=== PATIENT | female | born 1945 | race Caucasian/White ===

== ENCOUNTER 2023-02-17 14:55 | Outpatient (CLI) | payer MEDICARE, SELFPAY ==
--- NOTE | ~2023-02-17 | US_ITS ---
EXAMINATION:US venous doppler LE LT INDICATION:Left leg edema TECHNIQUE: Multiple grayscale, color flow and Doppler images of the left lower extremity deep venous systems were obtained and reviewed. COMPARISON:No prior studies for comparison. FINDINGS: The common femoral, superficial femoral and popliteal veins demonstrate normal respiratory variation, augmentation and compressibility. Color flow is also seen within the posterior tibial, pe roneal, greater saphenous and profunda veins. IMPRESSION: 1: No lower extremity deep venous thrombosis. Reviewed, dictated and finalized at location A. ERT INSTALLER
== END 2023-02-17 14:56 | disposition home or self-care (01) ==
PROVIDERS: Visit Provider Orthopaedic Surgery
DX: R60.0 Localized edema (principal); Z96.652 Presence of left artificial knee joint
CPT/HCPCS: 93971

== ENCOUNTER 2024-07-20 11:53 | Outpatient (CLI) | payer MEDICARE, SELFPAY ==
--- OUTSIDE RECORDS SUMMARY | 2024-07-20 12:03 | XMS_ITS | Clinical Summary ---
Author Organization [facility] Address [address] [place] [id number] Care Team Providers Care Mold Breaker Name Role Phone Kinjal Blackwood MD Primary Care Provider [phone] Allergies Active Allergy Reactions Criticality Noted Date Comments Diphenhydramine Other (see comment) 06/10/2023 Patient stated that they are wired and it makes them itch. Celecoxib Joint Pain 05/06/2023 Neomycin-Bacitracin Zn-Polymyx Itching,Redness Low 11/18/2012 Poison Bushra Extract Hives 06/10/2023 Medications multi vitamin/minerals (THERA-M ENHANCED) tablet Take 1 tablet by mouth daily. Active acetaminophen (TYLENOL) 500 MG tablet Take 1 tablet (500 mg total) by mouth every 6 (six) hours as needed for Pain. Active amLODIPine (NORVASC) 10 MG tabletIndication s:Primary hypertension Take 1 tablet (10 mg total) by mouth daily. 90 tablet 3 07/16/19 25 Active lisinopril (PRINIVIL) 20 MG tabletIndication s:Primary hypertension Take 1 tablet (20 mg total) by mouth daily. 90 tablet 3 07/16/19 25 Active vitamin D3, cholecalciferol, 1.25 MG (03369 UT) capsule Vitamin D3 025 Discontin ued(Thera py completed ) lisinopril (PRINIVIL) 20 MG tabletIndication s:Primary hypertension take 1 tablet by mouth every day 90 tablet 3 10/03/19 24 025 Discontin ued(Reord er) amLODIPine (NORVASC) 10 MG tabletIndication s:Primary hypertension take 1 tablet by mouth every day 90 tablet 3 10/10/19 24 025 Discontin ued(Reord er) amoxicillin (AMOXIL) 500 MG capsule Prior to dental appointments 08/18/19 24 025 Discontin ued(Thera py completed ) Active Problems Problem Noted Date Diagnosed Date Low back pain 04/17/2023 Osteoarthritis of right knee 04/17/2023 S/P total knee arthroplasty, left 01/27/2023 Osteoarthritis of left knee 01/12/2023 Positive colorectal cancer screening using Colog uard test 01/08/2023 Overview (01/08/2023): Added automatically from request for surgery [id number] Arthralgia of left knee 12/06/2022 Allergic rhinitis, unspecifi ed seasonality, unspecified trigger 10/25/2022 Osteoarthritis of both knees 06/28/2022 Pain in joint of right shoulder 12/21/2021 Osteoarthrosis 06/29/2021 Primary osteoarthritis of left hip 2020 Assessment & Plan (2020 10:21 AM CDT): At this time the patient would like to avoid surgical intervention due to her husbands health. We discussed the risks and benefits of a referral for a steroid injection, she declines as this would be short term relief potentially only a few weeks. She will continue Meloxicam. An RX for tramadol was sent to her pharmacy. She will call us back when she is ready to proceed with surgical intervention. Abnormal mammogram 06/26/2017 Hip pain, left 05/30/2017 Vitamin D deficiency 05/13/2017 Wears hearing aid in both ears 05/13/2017 Hyperlipidemia 11/18/2012 Hypertension 11/18/2012 Encounters Date Type Department Care Team Description 07/15/2024 10:20 AM CDT Office Visit [facility] Family & Internal Medicine [facility] [address] [place] [id number] Kinjal Blackwood MD Surgical Clearance 07/15/2024 Travel 06/16/2024 Scan [facility] INFO SRVCS Scanned, [facility] 05/31/2024 9:20 AM CDT Office Visit [facility] Family & Internal Medicine [facility] [address] [place] [address] Nevaeh Ny, NAA Back Pain (Was picking up sticks in yard and noticed spasms to back-just not getting better) 05/31/2024 Travel from Last 3 Months Immunizations Immunization Administration Dates Next Due Fluzone High Dose - >Age 65 (Prefilled Syringe) 11/25/2022,12/27/2021,11/14/2019,2018,12/12/2016 Influenza Adult (Generic) 12/27/2021,,11/17/2018,2017,12/13/2016 MODERNA COVID-19 BIVALENT (1 2+), MRNA, LNP-S, PF 12/31/2021 MODERNA COVID-19 (12+) MRNA, LNP-S, PF, 100 MCG/ 0.5 ML DOSE 01/09/2021,05/12/2020,04/14/2020 Pneumococcal (Pneumovax 23) 05/17/2010 Pneumococcal (Prevnar 13) 05/08/2015 Shingrix 04/03/2021,01/22/2021 Td, Adsorbed, Preservative F ree, Adult Use, Lf Unspecified 08/06/2010 Family History Medical History Relation Comments AAA Father Alzheimers Father Early Hearing Loss Father Breast Cancer Neg Hx Relation Status Comments Father Mother Social History Tobacco Use Types Packs/Day Years Used Date Smoking Tobacco: Never Passive Smoke Exposure: Never Smokeless Tobacco: Never Tobacco Cessation:Counseling Given: No Alcohol Use Standard Drinks/Week Comments Not Currently 0 (1 standard drink = 0.6 oz pur e alcohol) Social use AUDIT-C Answer Date Recorded Frequency of Alcohol Consumption Monthly or less 06/01/2018 Average Number of Drinks 1 or 2 019 Frequency of Binge Drinking Never 03/2018 PHQ-2 Answer Date Recorded Patient Health Questionnaire-2 Score 0 05/31/2024 Comments No Sex and Gender Information Value Date Recorded Sex Assigned at Female 11/04/2023 7:56 AM CDT Legal Sex Female 5:59 PM CDT Gender Identity Female 11/04/2023 7:56 AM CDT Sexual Orientation Not on file Last Filed Vital Signs Vital Sign Reading Time Taken Comments Blood Pressure 133/84 07/15/2024 10:43 AM CDT Pulse 89 07/15/2024 10:14 AM CDT Temperature 36.2 C (97.1 F) 07/15/2024 10:14 AM CDT Respiratory Rate 16 07/15/2024 10:14 AM CDT Oxygen Saturation 97% 07/15/2024 10:14 AM CDT Inhaled Oxygen Concentration - - Weight 68.5 kg (151 lb) 07/15/2024 10:14 AM CDT Height 154.9 cm (5' 1 ) 07/15/2024 10:14 AM CDT Body Mass Index 28.53 07/15/2024 10:14 AM CDT Plan of Treatment Upcoming Encounters Date Type Department Care Team (Late st Contact Info) Description 01/17/2025 11:20 AM TOBACCO BALER Office Visit [facility] Family & Internal Medicine - [address] [phone] Kinj[place] [id number] [place] [address]. [address] [place] [address] Health Maintenance Due Date Last Done Comments Annual Medicare Wellness Visit 2010 DTaP, Tdap and Td Vaccines (1 - Tdap) 08/07/2010 08/06/2010 Pneumococcal Vaccine: 50+ Years (3 of 3 - PCV20 or PCV21) 05/07/2020 05/08/2015, 05/17/2010 RSV Immunization or 60+ Years (1 - 1-dose 75+ series) 2020 COVID-19 Vaccine ( season) 2023 12/25/2022, 12/31/2021, 01/09/2021, Additional history exists Dexa Scan (General) Completed 05/18/2015 Colorectal Cancer Screening Colonoscopy (10 Years) Discontinued 05/30/2016 Hepatitis C Completed 05/17/2020 Zoster Vaccines Completed 04/03/2021, 01/22/2021 PHQ-2 (Physician [place]) Completed 05/31/2024 Meningococcal B Vaccine Aged Out No l onger eligible based on patient's age to complete this topic Meningococcal Vaccine Aged Out No jadon adelita eligible based on patient's age to complete this topic RSV Immunizations Under 20 Months Aged Out No longer eligible based on patient's age to complete this topic Procedures Procedure Name Priority Date/Time Associated Diagnosis Comments HEPATITIS C ANTIBODY W/RFX TO HCV RNA Routine 05/17/2020 7:56 AM CDT Need for hepatitis C screening test COLONOSCOPY Routine 05/30/2016 12:00 AM CDT BONE DENSITY/DEXA Routine 05/18/2015 10: 54 AM CDT from Last 3 Months or Most Recently Relevant to Health Maintenance Results * HEPATITIS C ANTIBODY W/RFX TO HCV RNA ([facility] ONLY) (05/17/2020 7:56 AM CDT) HEPATITIS C AB NON-REACTI VE NON-REACT DINA [facility] SIGNAL TO CUTOFF 0.01 <[address] [facility] Comment: HCV antibody was non-reactive. There is no laboratory evidence of HCV infection. In most cases, no further action is required. However, if recent HCV exposure is suspected, a test for HCV RNA (test code 93035) is suggested. For additional information please refer to http://education.Novelo/faq/EPW39o6 (This link is being provided for informational/ educational purposes only.) 05/17/2020 7:56 AM CDT 05/17/2020 11:54 PM CDT us Christina Sutton MD LABORATORY Final Result [facility] [address] [place] [address] * Colonoscopy (05/30/2016 12:00 AM CDT) 05/30/2016 05/30/2016 Narrative [facility] TO EPIC CONVERSION - 05/30/2016 12:00 AM CDT Documented hx of procedure Procedure Note Jonathan Hood MD - 01/04/2018 Documented hx of procedure us Generic Conversion Md HOOD GI PROCEDURE ORDERABLES Final Result [facility] TO EPIC CONVERSION * BONE DENSITY/DEXA (05/18/2015 10:54 AM CDT) Anatomical Region Laterality Modality Bone Bone Density 05/18/2015 10:5 4 AM CDT 05/18/2015 10:54 AM CDT Narrative 05/18/2015 11:03 AM CDT CLAU REYNOSO ADMIT/SERVICE DATE: 05/18/15 ACCT: [id number] DISCHARGE DATE: : 1945 SEX: F ORD SITE: [facility] PT TYPE: REG CLI ORDERING MD: CHRISTINA SUTTON MD STUDY DATE REPORT # ORDER # EXT ORDER ID 05/18/15 [id number] PROC CODE: DEXASCAN PROCEDURE DESCRIPTION: XR DEXA SCAN IMAGING STUDIES: XR DEXA SCAN DATE: 05/18/2015 10:28 AM INDICATION: . OSTEOPOROSIS. COMPARISON: NO COMPARISONS.. IMPRESSION: LUMBAR SPINE L2-L4: BMD: 1.389. T-SCORE: 2.8. WHO CLASSIFICATION: NORMAL YOUNG ADULT RANGE. FRACTURE RISK: VERY LOW FRACTURE RISK. FEMORAL NECK: BMD: 0.671. T-SCORE: -1.6. WHO CLASSIFICATION: OSTEOPENIA. FRACTURE RISK: MODERATE FRACTURE RISK. ELECTRONICALLY SIGNED BY SABINA FULLER MD Procedure Note Jonathan Hood MD - 12/24/2017 ANGELESCLAU ADMIT/SERVICE DATE:05/18/15 ACCT: [id number] DISCHARGE DATE: : 1945 SEX: F ORD SITE: [facility] PT TYPE: REG CLI ORDERING MD:CHRISTINA SUTTON MD STUDY DATE REPORT # ORDER # EXT ORDER ID 05/18/15 [id number] PROC CODE: DEXASCAN PROCEDURE DESCRIPTION: XR DEXA SCAN IMAGING STUDIES: XR DEXA SCANDATE: 05/18/2015 10:28 AM INDICATION: . OSTEOPOROSIS. COMPARISON: NO COMPARISONS.. IMPRESSION: LUMBAR SPINE L2-L4: BMD: 1.389. T-SCORE: 2.8. WHO CLASSIFICATION: NORMAL YOUNG ADULT RANGE. FRACTURE RISK: VERY LOW FRACTURE RISK. FEMORAL NECK: BMD: 0.671. T-SCORE: -1.6. WHO CLASSIFICATION: OSTEOPENIA. FRACTURE RISK: MODERATE FRACTURE RISK. ELECTRONICALLY SIGNED BY SABINA FULLER MD Christina Sutton MD DEXA Final Result from Last 3 Months or Most Recently Relevant to Health Maintenance Insurance [employer] Care Teams Mold Breaker Relationship Specialty [place] [id number] [place] [address] PCP - General FAMILY PRACTICE 06/18/22
--- OUTSIDE RECORDS SUMMARY | 2024-07-20 12:03 | XMS_ITS | CONTINUITY OF CARE DOCUMENT ---
Author Name dinorah copeland Address Unknown Organization [facility] Address [address] [place] [address] [address] [place] [address] Phone [phone] Care Team Providers Care Senior Sous Chef Name Role Phone Skip Joseph MD Unavailable [phone] Skip Joseph MD Unavailable [phone] INSURANCE PROVIDERS Payer name Policy type / Coverage type [place] red [employer] party ID [employer] MEDICARE VALUE ADVANTRA PPO [employer] [id number]
--- OUTSIDE RECORDS SUMMARY | 2024-07-20 12:03 | XMS_ITS | Data Portability ---
Author Organization [place] [facility], Main Office Address [address] [place] [address] Care Team Providers Care Wraparound Facilitator Name Role Phone AQUILINO WILLARD Primary Care Provider [phone] AQUILINO WILLARD Referring Provider [phone] Assessment Encounter Date Assessment Date Assessment LastModified by Organization Details LastModified Time 12/06/2022 12/06/2022 impression: Patient has severe medial compartment osteoarthritis In both knees. The left knee is a little bit more symptomatic. She does not feel she is getting adequate relief from the cortisone injections would like to proceed with knee replacement surgery doing the left 1 . She would like to have a cortisone shot in the right knee at time of surgery. I have discussed risks of surgery with her in detail. Her teeth are fine. Risk of infection was discussed. She is given the Ortho info handout on total knee arthroplasty for her review. I explained that will be numbness lateral to the incision the patient has had difficulty kneeling after knee replacement surgery for a long time some patients have anterior knee sensitivity . I discussed how her recovery may be a little bit different with knee replacement surgery compared hip replacement. Therapy will be more intensive and the need for her to comply with the range of motion exercises be much more important. I explained that most patients are able to do their activities of North daily living well by 3 months after surgery but that full recovery after knee replacement takes between 12 and 18 months. Risk of complications such as infection blood clots pulmonary embolism stiffness instability ligament injury fracture component loosening need for revision surgery bleeding need for transfusion nerve injury and medical complications such as heart attack stroke pulmonary embolism and were reviewed. She would like to proceed as discussed. 40 minutes were spent in total care this patient with more than half the time spent in [id number] care. Not available 12/14/2022 16:26:22 02/03/2023 02/03/2023 HPI: Patient returns. She is now 13 days out from left total knee arthroplasty. She is doing outpatient therapy. She has finished up her antibiotics. She has 1 more dose Eliquis. She remains taking Celebrex once a day and her Tylenol and oxycodone. Physical exam: Patient's incision is well healed. She has ecchymosis to the medial thigh and little bit to the proximal tibia. No swelling in either lower extremity. Range of motion is 0-100 degrees. Impression: Patient is doing well 13 days out left total knee arthroplasty. She will finish up her Eliquis tonight and start on the baby aspirin twice a day tomorrow. I have refilled her pain pills. She can transition to the cane as her comfort allows. I encouraged her to continue work hard on her exercises at home. We will see her in 2 weeks. [email or web address] Not available 02/03/2023 17:41:38 02/17/2023 02/17/2023 patient returns. She is now 4 weeks after left total knee arthroplasty. She was doing great last week her therapist thought on to do so well she can state off the walker insert using a cane. She is not sure if it was the use of the cane starting or the physical therapy on doing some new exercises but she has developed rather severe pain over the lateral anterolateral aspect of her distal left thigh. Weight-bearing does not seem to affect this. She has been taking 1 Celebrex 200 mg daily 1000 mg of Tylenol every 6 hours a 5 mg oxycodone every 4 5 hours. She did start the baby aspirin twice daily. It bothers her sitting standing exercising. Pain is fairly severe. Exam today she has range of motion from 0-90 degrees. She had 100 of flexion 2 weeks ago. She has rather severe tenderness over the iliotibial band particularly at the lateral joint line but also lateral to the lateral femoral condyle extending for inches proximal to the lateral femoral condyle and this is the pain that she is talking about she states. She had no medial tenderness. There is a [id number] effusion the knee typical at this point. Incision is nicely healed. She does have 1+ swelling diffusely in the calf and knee. No parapatellar tenderness. She is able to walk in the office without much difficulty. Impression patient has developed an iliotibial band tendinitis. I would recommend we give her a Medrol Dosepak for 6 days and after she is finished with that increase her Celebrex to 1 tablet twice daily. I have given her prescription for that. She does have some increased swelling in the left calf diffusely. I would recommend obtaining a venous duplex ultrasounds and she is on a baby aspirin twice daily now to make sure she does not have a DVT. If she does she will have that addressed they will call us stat with the result. Otherwise I will plan on seeing her back in 2 weeks assess her progress. If anything changes the meantime she will call. Not available 02/17/2023 15:08:44 03/07/2023 03/07/2023 Impression: Patient is improving. She had a little bit of stay set back 2 weeks ago and lost some her flexion but she is gaining it back. I have stressed with her the importance of doing the chair stretch exercise several times every day as much is every hour for few minutes ideally. I would recommend she continue to go to physical therapy for another few weeks. She may stop the twice daily aspirin at this time. I would see her back in 6 weeks to assess her progress and she can have another cortisone shot in her right knee at that time she would like. For now we will continue with the Celebrex 200 mg twice daily and once she is doing little bit better she will reduce this to once a day. She asked about sleeping better. I would recommend that she avoid napping during the day and trying to get out of bed before mindi and this generally leads to an easier time falling asleep night. Recheck 6 weeks possible cortisone shot right knee. Not available 03/23/2023 20:00:35 04/18/2023 04/18/2023 Impression: 1. Patient has severe medial compartment osteoarthritis right knee. She would like cortisone shot today. Risk of side effects including risk of infection discussed. After Betadine and alcohol prep, 20 mg of Kenalog and 4 cc of 0.5% ropivacaine were injected the right knee without difficulty. 2. 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 She had never had this pain prior to her knee replacement that she can recall. I suspect that the knee replacement lengthening the left leg a little bit on 05/08 in for a knee replacement, which is 1 cm, has caused a little bit of pelvic obliquity which has contributed to increased stress in her lower back and exacerbated her degenerative disc disease. She does have absent reflexes on the left side which are present on the right but no other neurologic deficit no motor weakness or sensation loss noted. She does have a little bit of decompensation to the right on the x-ray standing. I have offered her a Medrol Dosepak to quite on inflammation. She will put the Celebrex on hold while she is taking at and then she can resume it afterwards for another month. I am going to prescribe a felt heel lift for her to put under her right heel I have given her 07/16 and 09/15 felt heel lifts to try. I would recommend she start with the 09/15. If she feels that it is too much she can back down. I would recommend a course of physical therapy for back stabilization exercises. I will see her back in 6 weeks to assess her progress with this. 30 minutes were spent total care this patient more than half the time spent in [id number]-kg-[id number] care. Not available 04/20/2023 14:46:42 Plan of Treatment Reminders Order Date Submit Date Provider Last Modified By Organization Details Last Modified Time Details Appointments None recorded. Lab None recorded. Referral physical therapist referral 2023 024 [facility], [address] [place], [address], 4 17:13:12 Procedures injection/a spiration joint/bursa (PROC) - in office procedure, administere d by provider 2023 024 In-Office Order, Internal Use Only DO Not Attach Compendium DO Not Attach Compendium, Do Not Delete/merge, [id number] 10:07:37 Surgeries None recorded. Imaging XR, lumbar spine 2023 024 [email or web address] [facility] [place], [address], [place], [address], 4 10:14:45 XR, pelvis 2023 024 [email or web address] [facility] [place], [address], [address], 4 10:14:45 XR, knee 2023 024 [email or web address] [facility] [place], [address], [address], 4 14:33:22 Medication Orders Kenalog 10 mg/mL suspension for injection [address]/Pharmacy #[id number], [address], [address], 4 13:28:07 ropivacaine (PF) 5 mg/mL (0.5 %) injection solution [address]/Pharmacy #[id number], [address], [address], 4 13:28:07 Medrol (Lucas) 4 mg tablets in a dose pack [address]/Pharmacy #[id number], [address], [address], 4 13:28:07 Celebrex 200 mg capsule [address]/Pharmacy #[id number], [address], [address], 4 19:57:23 Patient TargetsNo targets recorded. Patient InstructionsNo instructions recorded. Reason for Referral Physical Therapist Referral for Low back pain lumbar spondylosis Referring Physician: Ervin Alaniz, Orthopedic Surgery, Encounter Date: 04/18/2023 Results Created Date Observation Date Name Description Value Unit Range Abnormal Flag Note LastModifiedBy Organization Detail LastModifiedTime 01/10/2001/09/2023 CBC/C OMPLE TE BLD COUNT W/DIF F white blood cells 6.0 x10'3 /uL 4.2-10 .8 Not Available [facility] (Lab) [address] [place], [address], 01/09/2023 12:06:25 01/10/20 23 01/09/2023 CBC/C OMPLE TE BLD COUNT W/DIF F red blood cells 4.24 x10'6 /uL 3.80-5 .20 Not Available [facility] (Lab) [address] [place], [address], 01/09/2023 12:06:25 01/10/20 23 01/09/2023 CBC/C OMPLE TE BLD COUNT W/DIF F hemoglobin 13.5 g/dL 12.0-1 5.6 Not Available [facility] (Lab) [address] [place], [address], 01/09/2023 12:06:25 01/10/20 23 01/09/2023 CBC/C OMPLE TE BLD COUNT W/DIF F hematocrit 40.4 % 35.7-4 5.7 Not Available [facility] (Lab) [address] [place], [address], 01/09/2023 12:06:25 01/10/2001/09/2023 CBC/C OMPLE TE BLD COUNT W/DIF F mean red cell volume 95.3 fL 82.0-9 9.0 Not Available [facility] (Lab) [address] [place], [address], 01/09/2023 12:06:25 01/10/20 23 01/09/2023 CBC/C OMPLE TE BLD COUNT W/DIF F mean red cell hemoglobin 31.8 pg 27.0-3 3.0 Not Available [facility] (Lab) [address] [place], [address], 01/09/2023 12:06:25 01/10/20 23 01/09/2023 CBC/C OMPLE TE BLD COUNT W/DIF F mean RBC HGB concentratio n 33.4 g/dL 31.0-3 6.0 Not Available [facility] (Lab) [address] [place], [address], 01/09/2023 12:06:25 01/10/20 23 01/09/2023 CBC/C OMPLE TE BLD COUNT W/DIF F red cell distribution width 12.9 % 11.8-1 5.5 Not Available [facility] (Lab) [address] [place], [address], 01/09/2023 12:06:25 01/10/20 23 01/09/2023 CBC/C OMPLE TE BLD COUNT W/DIF F platelets 238 x10'3 /uL 150-40 0 Not Available [facility] (Lab) [address] [place], [address], 01/09/2023 12:06:25 01/10/20 23 01/09/2023 CBC/C OMPLE TE BLD COUNT W/DIF F mean platelet volume 11.3 fL 9.0-12 .4 Not Available [facility] (Lab) [address] [place], [address], 01/09/2023 12:06:25 01/10/20 23 01/09/2023 CBC/C OMPLE TE BLD COUNT W/DIF F neutrophils 52.0 % 39.0-7 2.0 Not Available [facility] (Lab) [address] [place], [address], 01/09/2023 12:06:25 01/10/20 23 01/09/2023 CBC/C OMPLE TE BLD COUNT W/DIF F lymphocytes 34.7 % 16.0-4 7.0 Not Available [facility] (Lab) [address] [place], [address], 01/09/2023 12:06:25 01/10/20 23 01/09/2023 CBC/C OMPLE TE BLD COUNT W/DIF F monocytes 9.5 % 5.0-12 .0 Not Available [facility] (Lab) [address] [place], [address], 01/09/2023 12:06:25 01/10/2001/09/2023 CBC/C OMPLE TE BLD COUNT W/DIF F eosinophils 3.0 % 1.0-7. 0 Not Available [facility] (Lab) [address] [place], [address], 01/09/2023 12:06:25 01/10/2001/09/2023 CBC/C OMPLE TE BLD COUNT W/DIF F basophils 0.5 % 0.0-2. 0 Not Available [facility] (Lab) [address] [place], [address], 01/09/2023 12:06:25 01/10/20 23 01/09/2023 CBC/C OMPLE TE BLD COUNT W/DIF F immature granulocytes 0.3 % 0.00-0 .50 Not Available [facility] (Lab) [address] [place], [address], 01/09/2023 12:06:25 01/10/20 23 01/09/2023 CBC/C OMPLE TE BLD COUNT W/DIF F neutrophils, absolute count 3.13 x10'3 /uL 1.5-8. 0 Not Available [facility] (Lab) [address] [place], [address], 01/09/2023 12:06:25 01/10/20 23 01/09/2023 CBC/C OMPLE TE BLD COUNT W/DIF F lymphocytes, absolute count 2.09 x10'3 /uL 1.07-3 .43 Not Available [facility] (Lab) [address] [place], [address], 01/09/2023 12:06:25 01/10/20 23 01/09/2023 CBC/C OMPLE TE BLD COUNT W/DIF F monocytes, absolute count 0.57 x10'3 /uL 0.29-0 .99 Not Available [facility] (Lab) [address] [place], [address], 01/09/2023 12:06:25 01/10/2001/09/2023 CBC/C OMPLE TE BLD COUNT W/DIF F eosinophils, absolute count 0.18 x10'3 /uL 0.02-0 .53 Not Available [facility] (Lab) [address] [place], [address], 01/09/2023 12:06:25 01/10/20 23 01/09/2023 CBC/C OMPLE TE BLD COUNT W/DIF F basophils, absolute count 0.03 x10'3 /uL 0.01-0 .08 Not Available [facility] (Lab) [address] [place], [address], 01/09/2023 12:06:25 01/10/20 23 01/09/2023 CBC/C OMPLE TE BLD COUNT W/DIF F immature granulocytes ,absolute 0.02 x10'3 /uL 0.00-0 .05 Not Available [facility] (Lab) [address] [place], [address], 01/09/2023 12:06:25 01/10/2001/09/2023 CBC/C OMPLE TE BLD COUNT W/DIF F nucleated red blood cells 0.0 % -0 Not Available [facility] (Lab) [address] [place], [address], 01/09/2023 12:06:25 01/10/20 23 01/09/2023 CBC/C OMPLE TE BLD COUNT W/DIF F NRBC# 0.00 x10'3 /uL Not Available [facility] (Lab) [address] [place], [address], 01/09/2023 12:06:25 01/10/20 23 01/09/2023 BASIC METAB OLIC PANEL sodium 137 mmol/ L 137-14 5 Not Available [facility] (Lab) [address] [place], [address], 01/09/2023 12:23:11 01/10/2001/09/2023 BASIC METAB OLIC PANEL potassium 3.7 mmol/ L 3.5-5. 1 Not Available [facility] (Lab) [address] [place], [address], 01/09/2023 12:23:11 01/10/20 23 01/09/2023 BASIC METAB OLIC PANEL chloride 103 mmol/ L 98-107 Not Available [facility] (Lab) [address] [place], [address], 01/09/2023 12:23:11 01/10/20 23 01/09/2023 BASIC METAB OLIC PANEL carbon dioxide 28 mmol/ L 22-30 Not Available [facility] (Lab) [address] [place], [address], 01/09/2023 12:23:11 01/10/20 23 01/09/2023 BASIC METAB OLIC PANEL anion gap 9.7 mmol/ L 14-22 low Not Available [facility] (Lab) [address] [place], [address], 01/09/2023 12:23:11 01/10/20 23 01/09/2023 BASIC METAB OLIC PANEL glucose 118 mg/dL 70-99 high Not Available [facility] (Lab) [address] [place], [address], 01/09/2023 12:23:11 01/10/20 23 01/09/2023 BASIC METAB OLIC PANEL BUN 15 mg/dL 8-19 Not Available [facility] (Lab) [address] [facility], [place], [address], 01/09/2023 12:23:11 01/10/20 23 01/09/2023 BASIC METAB OLIC PANEL creatinine 0.73 mg/dL 0.66-1 .25 Not Available [facility] (Lab) [address] [facility], [place], [address], 01/09/2023 12:23:11 01/10/20 23 01/09/2023 BASIC METAB OLIC PANEL GFR >60 Refer ence Range : [place] ge GFR Healt hy Adult : >60 mL/mi n/1.7 3 m2 Chron ic Kidne y Disea se: 15-60 mL/mi n/1.7 3 m2 Kidne y Failu re: <15/m L/min /1.73 m2 www.n iddk. nih.g ov The MDRD study equat ion has not been valid ated in child ochoa <18 years of age; pregn ant women ; the elder ly >85 years of age; or in some racia l or ethni c subgr oups, such as sc nics. Outsi de the valid ated sara eters , estim ated GFR is less accur ate, requi ring clini cristóbal judgm ent on a case- by-ca se basis . Clini cristóbal inter preta tion for other races and ages must be made by the clini alex. The MDRD study equat ion has not been valid ated for the evalu ation of serum creat inine relat ed to nutri oliver l statu s or medic ation usage . For perso ns <18 years of age, a pedia tric GFR calcu lator is avail able on the [facility] websi te: https ://vasiliy w.analisa mc.o rg/pr ofess ional s/kdo qi/gf r_cal culat or Not Available [facility] (Lab) [address] [place], [address], 01/09/2023 12:23:11 01/10/20 23 01/09/2023 BASIC METAB OLIC PANEL calcium 10.1 mg/dL 8.4-10 .2 Not Available [facility] (Lab) [address] [place], [address], 01/09/2023 12:23:11 01/10/20 23 01/09/2023 TYPE AND SCREE N patient ABO group and Rh A POSITI VE Not Available [facility] (Lab) [address] [place], [address], 01/09/2023 15:01:31 01/10/2001/09/2023 TYPE AND SCREE N patient antibody screen NEGATI VE Not Available [facility] (Lab) [address] [place], [address], 01/09/2023 15:01:31 01/10/20 23 01/09/2023 MRSA/ STAPH AUREU S, NASAL , PCR MRSA, nasal NEGATI VE Not Available [facility] (Lab) [address] [place], [address], 01/09/2023 18:57:41 01/10/20 23 01/09/2023 MRSA/ STAPH AUREU S, NASAL , PCR staph aureus, nasal NEGATI VE Not Available [facility] (Lab) [address] [place], [address], 01/09/2023 18:57:41 01/23/20 23 01/22/2023 BASIC METAB OLIC PANEL sodium 139 mmol/ L 137-14 5 Not Available [facility] (Lab) [address] [place], [address], 01/22/2023 08:14:47 01/23/20 23 01/22/2023 BASIC METAB OLIC PANEL potassium 3.9 mmol/ L 3.5-5. 1 Not Available [facility] (Lab) [address] [place], [address], 01/22/2023 08:14:47 01/23/2001/22/2023 BASIC METAB OLIC PANEL chloride 104 mmol/ L 98-107 Not Available [facility] (Lab) [address] [place], [address], 01/22/2023 08:14:47 01/23/2001/22/2023 BASIC METAB OLIC PANEL carbon dioxide 23 mmol/ L 22-30 Not Available [facility] (Lab) [address] [facility] [place], [address], 01/22/2023 08:14:47 01/23/2001/22/2023 BASIC METAB OLIC PANEL anion gap 15.9 mmol/ L 14- Not Available [facility] (Lab) [address] [place], [address], 01/22/2023 08:14:47 01/23/20 23 01/22/2023 BASIC METAB OLIC PANEL glucose 159 mg/dL 70-99 high Not Available [facility] (Lab) [address] [place], [address], 01/22/2023 08:14:47 01/23/20 23 01/22/2023 BASIC METAB OLIC PANEL BUN 19 mg/dL 8-19 Not Available [facility] (Lab) [address] [place], [address], 01/22/2023 08:14:47 01/23/2001/22/2023 BASIC METAB OLIC PANEL creatinine 0.85 mg/dL 0.66-1 .25 Not Available [facility] (Lab) [address] [place], [address], 01/22/2023 08:14:47 01/23/20 23 01/22/2023 BASIC METAB OLIC PANEL GFR >60 Refer ence Range : [place] GFR Healt hy Adult : >60 mL/mi n/1.7 3 m2 Chron ic Kidne y Disea se: 15-60 mL/mi n/1.7 3 m2 Kidne y Failu re: <15/m L/min /1.73 m2 www.n iddk. nih.g ov The MDRD study equat ion has not been valid ated in child ochoa <18 years of age; pregn ant women ; the elder ly >85 years of age; or in some racia l or ethni c subgr oups, such as Hispa nics. Outsi de the valid ated sara eters , estim ated GFR is less accur ate, requi ring clini cristóbal judgm ent on a case- by-ca se basis . Clini cristóbal inter preta tion for other races and ages must be made by the clini alex. The MDRD study equat ion has not been valid ated for the evalu ation of serum creat inine relat ed to nutri oliver l statu s or medic ation usage . For perso ns <18 years of age, a pedia tric GFR calcu lator is avail able on the [facility] websi te: https ://vasiliy w.analisa mc.o scotty/pr margaritaess ional s/kdo qi/gf r_cal culat or Not Available [facility] (Lab) [address] [place], [address], 01/22/2023 08:14:47 01/23/2001/22/2023 BASIC METAB OLIC PANEL calcium 10.0 mg/dL 8.4-10 .2 Not Available [facility] (Lab) [address] [place], [address], 01/22/2023 08:14:47 01/23/2001/22/2023 CBC W/O DIFFE URBANO AL white blood cells 16.5 x10'3 /uL 4.2-10 .8 high Not Available [facility] (Lab) [address] [place], [address], 01/22/2023 08:27:59 01/23/20 23 01/22/2023 CBC W/O DIFFE RENTI AL red blood cells 3.61 x10'6 /uL 3.80-5 .20 low Not Available [facility] (Lab) [address] [place], [address], 01/22/2023 08:27:59 01/23/20 23 01/22/2023 CBC W/O DIFFE RENTI AL hemoglobin 11.7 g/dL 12.0-1 5.6 low Not Available [facility] (Lab) [address] [place], [address], 01/22/2023 08:27:59 01/23/2001/22/2023 CBC W/O DIFFE RENTI AL hematocrit 34.9 % 35.7-4 5.7 low Not Available [facility] (Lab) [address] [place], [address], 01/22/2023 08:27:59 01/23/20 23 01/22/2023 CBC W/O DIFFE RENTI AL mean red cell volume 96.7 fL 82.0-9 9.0 Not Available [facility] (Lab) [address] [place], [address], 01/22/2023 08:27:59 01/23/20 23 01/22/2023 CBC W/O DIFFE RENTI AL mean red cell hemoglobin 32.4 pg 27.0-3 3.0 Not Available [facility] (Lab) [address] [place], [address], 01/22/2023 08:27:59 01/23/20 23 01/22/2023 CBC W/O DIFFE RENTI AL mean RBC HGB concentratio n 33.5 g/dL 31.0-3 6.0 Not Available [facility] (Lab) [address] [place], [address], 01/22/2023 08:27:59 01/23/20 23 01/22/2023 CBC W/O DIFFE RENTI AL red cell distribution width 13.2 % 11.8-1 5.5 Not Available [facility] (Lab) [address] [place], [address], 01/22/2023 08:27:59 01/23/20 23 01/22/2023 CBC W/O DIFFE RENTI AL platelets 236 x10'3 /uL 150-40 0 Not Available [facility] (Lab) [address] [place], [address], 01/22/2023 08:27:59 01/23/2001/22/2023 CBC W/O DIFFE RENTI AL mean platelet volume 11.7 fL 9.0-12 .4 Not Available [facility] (Lab) [address] [place], [address], 01/22/2023 08:27:59 01/22/2001/21/2023 XR, knee, 1 or 2 view [facility] [address] [place] [address] [phone] Patien t Name: CLAU NÚÑEZ Access ion #: [id number] Sex: F : 1945 6 9 Dictat ed By: Alejo Gutierrez [facility] Physic marika: ERVIN BEY [facility] Physic marika: ERVIN BEY Exam Date: 2022 09:56 AM Exam Name: XR KNEE LT 2V Admitt ing Diagno sis(es ): Left knee radiog raph CLINIC AL INDICA TION: Lt Total Knee Arthro plasty TECHNI QUE: 2 radiog raphic views of the left knee were obtain ed. Compar marisa: None FINDIN GS: Post left knee arthro plasty . There is no eviden ce of acute fractu re or disloc ation. The visual ized joint space is well mainta ined. The alignm ent is anatom ical. Small volume gas and fluid in the joint space IMPRES DAMON: Expect ed findin gs post left knee arthro plasty . Electr onical ly Signed by: Alejo Brown at 2022 10:50: 02 AM Page [address] ([facility]) [address] [facility], [place], [address], 01/21/2023 12:56:55 02/07/20 23 01/09/2023 elect mag paez am No observ ation record ed. [email or web address] Not Available 2022 09:43:09 02/18/20 23 02/17/2023 US, chaimle x, venou s, lower extre mity No observ ation record ed. [email or web address] [facility] [address], [place], [address], 02/18/2023 10:29:52 03/07/19 24 XR, knee No observ ation record ed. [facility] [place] [address], [place], [address], 03/23/2023 19:58:42 04/18/19 24 XR, lumba r spine No observ ation record ed. [facility] [place] [address], [place], [address], 04/20/2023 14:41:13 04/18/19 24 XR, pelvi s No observ ation record ed. [facility] [place] [address], [place], [address], 04/20/2023 14:40:29 Result Notes None recorded. Problems Name Problem SNOMED Code Status Onset Date Resolution Date Notes Provider Name and Address Organization Details Recorded Time Pain of right shoulder joint 3861464847797 9100 Active 2021 Not Available [facility] 22:45:06 Osteoarthr itis 052878734 Active 2021 Not Available [facility] 3 22:45:06 Bilateral osteoarthr itis of knees 3284422668749 07 Active 2022 MILANA Huntley null, [place] - [facility] 3 09:56:58 Pain of left knee joint 5171724724247 07 Active 2022 MILANA Huntley null, [place] [facility] 3 10:01:05 Osteoarthr itis of left knee joint 5156771431710 09 Active 2022 Dayanna Koch CMA null, [place] - [facility] 3 12:14:09 History of left total knee replacemen t 8210484235246 105 Active 2022 Dayanna Koch CMA null, [place] - [facility] 3 15:06:28 Osteoarthr itis of right knee joint 8813725583817 00 Active 2023 MILANA Huntley null, [place] - [facility] 4 10:06:35 Low back pain 651144341 Active 2023 Dayanna Koch CMA null, [facility] 4 10:22:49 Problem Notes None recorded. Procedures Surgical History Date Name Laterality Status Provider Name and Address Organization Details Recorded Time Hip surgery completed Not Available [facility] 05/02/19 22:43:54 procedure on ear completed Not Available [facility] 05/01/2022 22:43:54 Tubal Ligation completed Not Available [facility] 05/01/2022 22:43:54 Imaging Results Imaging Date Name Status LastModified by Organization Details LastModified Time 01/21/2023 XR, knee, 1 or 2 view completed [email or web address] [facility] (Imaging) [address] [place], [address], 01/21/2023 12:56:55 01/09/2023 electrocardiogram completed [email or web address] Informa tion not available 02/06/2023 09:43:09 02/17/2023 US, duplex, venous, lower extremity completed [email or web address] [facility] [address], [place], [address], 02/18/2023 10:29:52 03/07/2023 XR, knee completed [facility] [place] [address], [place], [address], 03/23/2023 19:58:42 04/18/2023 XR, lumbar spine completed [facility] [place] [address], [place], [address], 04/20/2023 14:41:13 04/18/2023 XR, pelvis completed [facility] [place] [address], [place], [address], 04/20/2023 14:40:29 Procedure Notes None recorded. Medical Equipment None Reported. Medications Name Sig Start Date Stop Date Status Note LastModified by Organization Details LastModified Time celecoxib 200 mg capsule TAKE 1 CAPSULE BY MOUTH EVERY 12 HOURS active Not Available Not Available No t Available cyclobenzap rine 10 mg tablet TAKE 1 TABLET BY MOUTH THREE TIMES A DAY NEEDED FOR MUSCLE SPASMS 09/27 completed Not Available Not Available Not Available amoxicillin 500 mg capsule TAKE 4 CAPSULES BY MOUTH 1 HOUR BEFORE DENTAL APPT 02/03 completed Not Available Not Available Not Available azithromyci n 250 mg tablet TAKE 2 TABLETS BY MOUTH TODAY, THEN TAKE 1 TABLET DAILY FOR 4 DAYS 06/28 completed Not Available Not Available Not Available hydrocodone 5 mg-acetamin ophen 325 mg tablet TAKE 1 TABLET BY MOUTH EVERY 6 HOURS NEEDED FOR ACUTE PAIN LESS THAN 7 DAY SUPPLY 09/27 completed Not Available Not Available Not Available meloxicam 15 mg tablet TAKE 1 TABLET BY MOUTH EVERY DAY 12/21 completed Not Available Not Available Not Available lisinopril 20 mg tablet TAKE 1 TABLET BY MOUTH EVERY DAY active Not Available Not Available No t Available clindamycin HCl 150 mg capsule TAKE 4 CAPSULES 1 HOUR BEFORE PROCEDURE 06/29 completed Not Available Not Available Not Available amlodipine 5 mg tablet TAKE 1 TABLET BY MOUTH DAILY. 03/29 completed Not Available Not Available Not Available estradiol 0.05 mg/[address] 1 PATCH (0.05 MG TOTAL) ONTO THE SKIN TWICE A WEEK. 06/28 completed Not Available Not Available Not Available sulfamethox azole 800 mg-trimetho prim 160 mg tablet TAKE 1 TABLET BY MOUTH TWICE A DAY FOR 1 DAY 10/30 completed Not Available Not Available Not Available tramadol 50 mg tablet TAKE 1 TABLET BY MOUTH EVERY 8 HOURS NEEDED FOR PAIN active Not Available Not Available No t Available pravastatin 10 mg tablet 07/26 completed Not Available Not Available Not Available Kenalog 10 mg/mL suspension for injection in office 2023 active [facility]: 0003- 0494- 20 Not Available Not Available Not Available amlodipine 10 mg tablet TAKE 1 TABLET BY MOUTH EVERY DAY active Not Available Not Available No t Available progesteron e micronized 200 mg capsule TAKE 1 CAPSULE BY MOUTH EVERY DAY 09/27 completed Not Available Not Available Not Available methylpredn isolone 4 mg tablets in a dose pack TAKE 6 TABLETS ON DAY 1 DIRECTED ON PACKAGE AND DECREASE BY 1 TAB EACH DAY FOR A TOTAL OF 6 DAYS active Not Available Not Available No t Available cefdinir 300 mg capsule TAKE 1 CAPSULE BY MOUTH BY MOUTH TWICE A DAY 02/17 completed Not Available Not Available Not Available progesteron e micronized 100 mg capsule TAKE 1 CAPSULE BY MOUTH EVERY DAY 09/28 completed Not Available Not Available Not Available amoxicillin 875 mg-potassiu m clavulanate 125 mg tablet TAKE 1 TABLET BY MOUTH TWICE A DAY FOR 10 DAYS 06/28 completed Not Available Not Available Not Available oxycodone 5 mg tablet TAKE 1 TABLET BY MOUTH EVERY 4 HOURS NEEDED active Not Available Not Available No t Available estradiol 0.025 mg/24 hr semiweekly transdermal patch APPLY 1 PATCH TWICE A WEEK 09/28 completed Not Available Not Available Not Available rosuvastati n 10 mg tablet TAKE 1 TABLET BY MOUTH EVERYDAY AT BEDTIME 07/26 completed Not Available Not Available Not Available rosuvastati n 20 mg tablet TAKE 1 TABLET BY MOUTH NIGHTLY AT BEDTIME 09/28 completed Not Available Not Available Not Available acetaminoph en 10/30 completed Not Available Not Available Not Available Vitamin D3 2020 active Not Available Not Available Not Avai lable lidocaine (PF) 5 mg/mL (0.5 %) injection solution In office injection administe red by the provider 09/28 completed Not Available Not Available Not Available Senexon-S 8.6 mg-50 mg tablet TAKE 2 TABLET BY MOUTH TWICE A DAY TO PREVENT CONSTIPAT ION- HOLD FOR LOOSE STOOLS. 04/18 completed Not Available Not Available Not Available ropivacaine (PF) 5 mg/mL (0.5 %) injection solution in office 2023 active [facility] [id number] -[phone]- 01 Not Available Not Available Not Available polyethylen e glycol (bulk) 10/30 completed Not Available Not Available Not Available Eliquis 2.5 mg tablet TAKE 1 TABLET BY MOUTH BY MOUTH EVERY 12 HOURS 02/03 completed Not Available Not Available Not Available apixaban 10/30 completed Not Available Not Available Not Available sennosides 8.6 mg-docusate sodium 50 mg capsule Take 2 capsules every day by oral route. 10/30 completed Not Available Not Available Not Available BinaxNOW COVID-19 Ag Self Test kit Use as Directed on the Package 06/28 completed Not Available Not Available Not Available Vitals Date Recorded Body height Provider Name an d Address Organization Details Last Updated DateTime 12/06/2022 152.4 cm Geraldine Gillespie [facility] 12/06/2022 09:59:59 Date Recorded Body height Provider Name an d Address Organization Details Last Updated DateTime 02/03/2023 152.4 cm Geraldine Gillespie [facility] 02/03/2023 16:49:19 Date Recorded Body height Provider Name an d Address Organization Details Last Updated DateTime 02/17/2023 152.4 cm Geraldine Gillespie [facility] 02/17/2023 14:42:07 Date Recorded Body height Provider Name an d Address Organization Details Last Updated DateTime 03/07/2023 152.4 cm MILANA Huntley [place] [facility] 03/07/2023 10:19:29 Date Recorded Body height Provider Name an d Address Organization Details Last Updated DateTime 04/18/2023 152.4 cm MILANA Huntley [place] [facility] 04/18/2023 10:06:13 Social History None recorded. Functional Status Question Answer Note LastModified by Organizat ion Details LastModified Time What is your level of alcohol consumption? None [id number] Information not available 05/01/2022 Mental Status None recorded. Family History Relationship Description Onset Age of this Age Resolved Age Notes LastModified by Organization Details LastModified Time Mother Alzheimer's disease [id number] Not available 05/01/2022 22:43:55 Mother Hypertensive disorder [email or web address] Not available 2022 10:04:23 Medical History Condition Response HYPERTENSION Y Gynecological HistoryNo gynecological history recorded. Obstetrics History GPAL:G 0 P 0 0 0 0 Past Encounters Encounter ID Performer Location Encounter Start Date Encounter Closed Date Diagnosis/Indication Diagnosis SNOMED-CT Code Diagnosis ICD10 Code Diagnosis Note [id number] MD TALIA [facility] [place] [address] [place] [address] 07/26/2020 00:00:00 08/04/2020 18:32:33 [id number] Ervin Alaniz MD [facility] [place] [address] [place] [address] 10/13/2020 00:00:00 10/13/2020 11:15:37 [id number] [facility] [place] [address] [place] [address] 10/30/2020 00:00:00 10/30/2020 15:29:11 [id number] MD [facility] [place] [address] [place] [address] 11/27/2020 00:00:00 11/27/2020 14:35:42 [id number] MD [facility] [place] [address] [place] [address] 06/29/2021 00:00:00 06/29/2021 09:53:01 [id number] Ervin Alaniz MD [facility] [place] [address] [place] [address] 09/28/2021 00:00:00 09/28/2021 10:51:09 [id number] Ervin Alaniz MD [facility] [place] [address] [place] [address] 10/03/2021 00:00:00 10/03/2021 14:41:44 [id number] MD TALIA [facility] [place] [address] [place] [address] 12/21/2021 00:00:00 12/21/2021 12:20:47 [id number] MD TALIA [facility] [place] [address] [place] [address] 12/28/2021 00:00:00 12/28/2021 10:39:56 [id number] MD TALIA [facility] [place] [address] [place] [address] 03/29/2022 00:00:00 03/29/2022 11:35:33 [id number] MD DEEPTHI [facility] [place] [address] [place] [address] 06/28/2022 09:45:44 06/28/2022 10:37:08 Bilateral osteoarthritis of knees 2544174731 57490 M17.0 [id number] MD DEEPTHI [facility] [place] [address] [place] [address] 09/27/2022 09:54:26 09/27/2022 10:36:53 Bilateral osteoarthritis of knees 0875862272 48794 M17.0 [id number] MD TALIA [facility] [place] [address] [place] [address] 12/06/2022 09:43:04 12/16/2022 11:38:07 Pain of left knee joint 6459262231 91276 M25.420 [id number] Ervin Alaniz MD [facility] [place] [address] [place] [address] 02/03/2023 16:45:31 02/03/2023 17:43:31 History of left total knee replacement 5978243532 573868 Z96.392 [id number] Ervin Alaniz MD [facility] [place] [address] [place] [address] 02/17/2023 14:39:08 02/17/2023 15:13:46 History of left total knee replacement 2504198128 835579 Z96.874 [id number] Ervin Alaniz MD [facility] [place] [address] [place] [address] 03/07/2023 10:15:36 03/24/2023 14:33:21 History of left total knee replacement 6516301374 043993 Z96.652 R60.0 [id number] Ervin Alaniz MD [facility] [place] [address] [place] [address] 04/18/2023 10:02:51 04/21/2023 10:14:44 Osteoarthritis of right knee joint 1887989921 54802 M17.11 Low back pain 089857300 M54.50 Health Concerns Section Related Observation LastModified by Organization Detai ls LastModified Time None Recorded Concern Status LastModified by Organization Details LastModified Time None Recorded Advance Directives Directive None Recorded Payers Encounter Date Sequence Insurance Name Policy Number Policy Bennett Covered Member ID Bennett Member ID Guarantor Name 12/06/2022 1 [employer] (MEDICARE REPLACEMENT/ ADVANTAGE - PPO) [id number] L Clau L Gieseking [id number] Clau Gieseking 02/03/2023 1 [employer] (MEDICARE REPLACEMENT/ ADVANTAGE - PPO) [id number] L Clau L Gieseking [id number] Clau Gieseking 02/17/2023 1 [employer] (MEDICARE REPLACEMENT/ ADVANTAGE - PPO) [id number] L Clau Howard Gieseking [id number] Clau Gieseking 03/07/2023 1 [employer] (MEDICARE REPLACEMENT/ ADVANTAGE - PPO) [id number] L Clau Howard Gieseking [id number] Clau Gieseking 04/18/2023 1 [employer] (MEDICARE REPLACEMENT/ ADVANTAGE - PPO) [id number] L Clau Howard Gieseking [id number] Clau Gieseking Notes Date Note Type Note Provider Name and Address Organization Details Recorded Time 12/06/2022 text/html patient returns. she is a 77-year-old female who has been getting cortisone shots in her knees. Last injections with 2 months ago on September 27 and they only helped about a month. She has decided that she would like to proceed with knee replacement surgery left knee because she is not getting satisfactory relief and she feels she is very limited. Her right knee is almost as bad. X-rays from June 28 2022 demonstrate [id number] medial compartment osteoarthritis in both knees which is a little bit more advanced on the left with some flattening of the left medial femoral condyle due to wear. She underwent left hip replacement in October of 2020 and this is doing well. Her chief complaint is anteromedial knee pain on the left sometimes she feels some lateral distal thigh discomfort just proximal to the lateral knee when she is rolling on her side at night. She has been taking Tylenol and aspirin and does not feel that these help. Ervin Alaniz MD [address] [facility], [place], [address], [employer] 12/14/2022 16:26:41 03/07/2023 text/html patient returns. She is now 45 days after left total knee arthroplasty on 01/21/2023. Last visit she was having a lot of pain and tenderness at the IT band. She has been taking Celebrex and her pain has improved greatly over the last 2 weeks. She takes an oxycodone tablet when she goes to bed which does help her sleep. Ervin Alaniz MD [address], [place], [address], [employer] 03/23/2023 20:00:48 04/18/2023 text/html Patient returns. She is now just under 3 months after left knee replacement. She is complaining of pain in the left buttock and lower back lateral thigh anterolateral knee. She feels that the left knee is functioning well. She is still taking oxycodone at bedtime for these pains. She is still taking Celebrex 200 mg twice daily which she has been taking for the last 6 weeks. She also takes Tylenol Arthritis every 8 hours which helps. She has severe medial compartment osteoarthritis in the right knee would like cortisone shot there today. She believes that she started noticing the left buttock lower back pain lateral thigh pain approximately 2 or 3 weeks after surgery when she started cutting back on the oxycodone. She does have a history of left hip replacement in the past. Ervin Alaniz MD [address] [place] [address], [place] [address], [place], [address], [place] [facility] 04/20/2023 14:46:55 OBGyn Episode No OBEpisode recorded.
--- OUTSIDE RECORDS SUMMARY | 2024-07-20 12:03 | XMS_ITS | Encounter Summary ---
Author Organization [facility] Address [address] [place] [address] Care Team Providers Care Deck Lid Fitter Name Role Phone Kinjal Blackwood MD Primary Care Provider [phone] Reason for Visit * Reason Onset Date Comments Schedule Surgery 06/10/2023 Encounter Details Date Type Department Care Team (Late st Contact Info) Description [facility] [address] [place] [address] Grazyna Alfaro, RN Schedule Surgery Social History Tobacco Use Types Packs/Day Years Used Date Smoking Tobacco: Never Passive Smoke Exposure: Never Smokeless Tobacco: Never Alcohol Use Standard Drinks/Week Comments Not Currently 0 (1 standard drink = 0.6 oz pur e alcohol) Social use AUDIT-C Answer Date Recorded Frequency of Alcohol Consumption Monthly or less 06/01/2018 Average Number of Drinks 1 or 2 019 Frequency of Binge Drinking Never 03/2018 PHQ-2 Answer Date Recorded Patient Health Questionnaire-2 Score 0 05/06/2023 Comments No Sex and Gender Information Value Date Recorded Sex Assigned at Female 11/04/2023 7:56 AM CDT Legal Sex Female 5:59 PM CDT Gender Identity Female 11/04/2023 7:56 AM CDT Sexual Orientation Not on file documented as of this encounter Plan of Treatment Upcoming Encounters Date Type Department Care Team (Late st Contact Info) Description 01/17/2025 11:20 AM FORENSIC TECHNICIAN Office Visit [facility] Family & Internal Medicine [facility] [address] [place] [address] [place] [address] [place] [address] documented as of this encounter Visit Diagnoses Not on filedocumented in this encounter Additional Health Concerns Assessment Noted Time PHQ-9 Depression Total Score: 1 05/16/19 22 8:25 AM CDT documented as of this encounter Care Teams Deck Lid Fitter Relationship Specialty [place] [address] [place] [address] PCP - General FAMILY PRACTICE 06/18/22 documented as of this encounter
--- OUTSIDE RECORDS SUMMARY | 2024-07-20 12:04 | XMS_ITS | Encounter Summary ---
Author Organization [facility] Address [address] [place] [address] Care Team Providers Care Tire Builder Operator Name Role Phone Kinjal Blackwood MD Primary Care Provider [phone] Encounter Details Date Type Department Care Team (Late st Contact Info) Description 01/08/2023 Prep for Procedure [facility] General Surgery [address], [address] [place] [address] Wilma Bourgeois MD [address] [facility] [address] [place] [address] Social History Tobacco Use Types Packs/Day Years Used Date Smoking Tobacco: Never Smokeless Tobacco: Never Alcohol Use Standard Drinks/Week Comments Not Currently 0 (1 standard drink = 0.6 oz pur e alcohol) Social use AUDIT-C Answer Date Recorded Frequency of Alcohol Consumption Monthly or less 06/01/2018 Average Number of Drinks 1 or 2 019 Frequency of Binge Drinking Never 03/2018 PHQ-2 Answer Date Recorded Patient Health Questionnaire-2 Score 0 03/15/2022 Comments No Sex and Gender Information Value Date Recorded Sex Assigned at Female 11/04/2023 7:56 AM CDT Legal Sex Female 5:59 PM CDT Gender Identity Female 11/04/2023 7:56 AM CDT Sexual Orientation Not on file documented as of this encounter Plan of Treatment Upcoming Encounters Date Type Department Care Team (Late st Contact Info) Description 01/17/2025 11:20 AM TELECOMMUNICATIONS ANALYST Office Visit [facility] Family & Internal Medicine - [place] [address] [place] [address] [place] [address] [facility] [address] [place] [address] documented as of this encounter Visit Diagnoses Diagnosis Positive colorectal cancer screening using Cologuard test- Primary documented in this encounter Additional Health Concerns Assessment Noted Time PHQ-9 Depression Total Score: 1 05/16/19 22 8:25 AM CDT documented as of this encounter Care Teams Tire Builder Operator Relationship Specialty [place] [address] [facility] [address] [place] [address] PCP - General FAMILY PRACTICE 06/18/22 documented as of this encounter
--- NOTE | 2024-07-20 12:33 | ECG_ITS ---
Test Date: 2024-07-20 12:46:33 Measurements Intervals [place] Rate: 81 P: 42 GA: 193 QRS: 20 QRSD: 90 T: 27 QT: 333 QTc: 388 Interpretive Statements SINUS RHYTHM NONSPECIFIC ST & T-WAVE ABNORMALITY No previous ECG available for comparison Electronically Signed On 07-20-2024 13:45:03 CDT by John Garza M.D.
[2024-07-20 13:41] LABS: Albumin Level 4.7 g/dL (3.5-5.1); Anion Gap 9 mmol/L (4-12); Blood Urea Nitrogen 20 mg/dL (7-17); Calcium 9.7 mg/dL (8.4-10.2); Carbon Dioxide 26 mmol/L (22-30); Chloride 105 mmol/L (98-107); Estimated Glomerular Filt Rate > 60; Glucose 82 mg/dL (65-110); Sodium 140 mmol/L (137-145)
[2024-07-20 14:04] LABS: Basophils Percent Auto 0.5 % (0.2-1.2); Eosinophils Absolute Auto 0.2 K/mm3 (0-0.3); Eosinophils Percent Auto 2.9 % (0-4.4); Hematocrit 41.6 % (37.0-47.0); Hemoglobin 13.8 g/dL (12.0-15.0); Immature Granulocyte Absolute 0.01 K/mm3 (0.00-0.031); Immature Granulocyte Percent A 0.1 % (0-0.5); Lymphocytes Absolute Auto 2.51 K/mm3 (0.9-3.2); Lymphocytes Percent Auto 30.2 % (18.3-44.2); Mean Corpuscular HGB Conc 33.2 g/dl (32-36); Mean Corpuscular Volume 93.5 fl (80-100); Monocytes Absolute Auto 0.8 K/mm3 (0.1-0.6); Neutrophils Absolute Auto 4.7 K/mm3 (1.3-6.7); Neutrophils Percent Auto 56.3 % (45.5-73.1); Platelet Count Result 255 k/mm3 (150-375); Red Blood Count 4.45 M/mm3 (4.2-5.4); Red Cell Distribution Width 13.4 % (11.5-14.5); White Blood Count 8.3 K/mm3 (4.5-10.0)
[2024-07-20 14:47] LABS: Urine Cotinine NEGATIVE
[2024-07-20 14:51] LABS: Hemoglobin A1C 5.5 % (<5.7)
== END 2024-07-20 11:54 | disposition home or self-care (01) ==
LOC: ANHSURGERY 12:01
PROVIDERS: PCP Family Medicine; Visit Provider Orthopaedic Surgery
DX: Z01.818 Encounter for other preprocedural examination (principal); M17.11 Unilateral primary osteoarthritis, right knee
CPT/HCPCS: 80048; 80307; 82040; 83036; 85025; 87081; 93005

== ENCOUNTER 2024-07-20 12:55 | Outpatient (CLI) | payer MEDICARE, SELFPAY ==
--- NOTE | ~2024-07-20 | XR_ITS ---
Corrected Report 08/12/2024 Moved to correct v# from [id number] This report was recreated on 08/12/2024. Original report was signed by . EXAMINATION: XR chest 2V 07/20/2024 13:01 INDICATION: Osteoarthritis. Preop. PROCEDURE: 2 view chest COMPARISON: No prior studies for comparison. FINDINGS: The lungs are clear. The cardiomediastinal silhouette is within normal limits. There are no pleural effusions. There is no pneumothorax suspected. There is ectasia of the thoracic aorta. Mild thoracic spondylosis. IMPRESSION: 1: NO ACUTE CARDIOPULMONARY DISEASE. Reviewed, dictated and finalized at location B.
--- OUTSIDE RECORDS SUMMARY | 2024-09-09 12:58 | XMS_ITS | Encounter Summary ---
Author Organization [facility] Address [address] [place] [address] Care Team Providers Care Char Filter Tank Tender Head Name Role Phone Kinjal Blackwood MD Primary Care Provider [phone] Reason for Visit * Reason Onset Date Comments Schedule Surgery 06/10/2023 Encounter Details Date Type Department Care Team (Late Contact Info) Description 06/10/2023 Telephone [facility] [address] [place] [address] Grazyna Alfaro, RN Schedule Surgery Social History [...] Encounters Date Type Department Care Team (Late Contact Info) Description 09/10/2024 1:00 PM CDT Appointment [facility] [address] [place] [address] [place] [address] [address] Ervin Alaniz MD [address] [facility] [address] [place] [address] Sydney Montez, HAIRSPRING STAKER 09/14/2024 11:15 AM CDT Appointment [facility] [address] [place] [address] [place] [address] [place] [address] Ervin Alaniz MD [address] [place] [address] Sydney Montez, HAIRSPRING STAKER 09/17/2024 2:45 PM CDT Appointment [facility] [address] [place] [place] [address] [place] [address] [facility] [place] [address] Ervin Alaniz MD [address] [place] [address] 09/21/2024 11:15 AM CDT Appointment [facility] [address] [place] [address] [place] [address] [place] [address] Ervin Alaniz MD [address] [place] [address] Sydney Montez, HAIRSPRING STAKER 09/24/2024 11:15 AM CDT Appointment [facility] [address] [place] [address] [place] [address] [place] [address] Ervin Alaniz MD [address] [place] [address] Sydney Montez, HAIRSPRING STAKER 09/28/2024 11:15 AM CDT Appointment [facility] [address] [place] [address] [place] [address] [facility] [address] [address] Ervin Alaniz MD [address] [place] [address] Sydney Montez, HAIRSPRING STAKER 01/17/2025 11:20 AM MACHINE SETTER AUTOMATIC Office Visit [facility] Family & Internal Medicine - [address] [phone] [place] [address] [facility] [address] documented as of this encounter Visit Diagnoses Not on filedocumented in this encounter Additional Health Concerns Assessment Noted Time PHQ-9 Depression Total Score: 1 05/16/19 22 8:25 AM CDT documented as of this encounter Care Teams Char Filter Tank Tender Head Relationship Specialty Start Date End Date Kinjal Blackwood MD [address] [place] [address]. [address] [address] PCP - General FAMILY PRACTICE 06/18/22 documented as of this encounter
--- OUTSIDE RECORDS SUMMARY | 2024-09-09 12:58 | XMS_ITS | Clinical Summary ---
Author Organization [facility] Address [address] [place] [address] Care Team Providers Care Flow Nurse Name Role Phone Kinjal Blackwood MD Primary Care Provider [phone] Allergies Active Allergy Reactions Criticality Noted Date [...] for Pain. Active amLODIPine (NORVASC) 10 MG tabletIndications :Primary hypertension Take 1 tablet (10 mg total) by mouth daily. 90 tablet 3 07/15/2024 Active lisinopril (PRINIVIL) 20 MG tabletIndications :Primary hypertension Take 1 tablet (20 mg total) by mouth daily. 90 tablet 3 07/15/2024 Active Active Problems Problem Noted Date Diagnosed Date Presence of total knee joint prosthesis, right 0 08/18/2024 Low back pain 04/17/2023 Osteoarthritis of right knee 04/17/2023 S/P total knee arthroplasty, left 01/27/2023 Osteoarthritis of left knee 01/12/2023 Positive colorectal cancer screening using Colog uard test 01/08/2023 Overview (01/08/2023): Added automatically from request for surgery [id number] Arthralgia of left knee 12/06/2022 Allergic rhinitis, [...] Encounters Date Type Department Care Team Description 09/07/2024 10:35 AM CDT - 09/07/2024 11:59 PM CDT Hospital Encounter [facility] [address] [place] [address] Kinjal Blackwood MD Scherer, Paul J, MD Eddy, Sandi L, WAREHOUSE MAN Knee Pain Discharge Disposition: Home or Self Care (Routine Discharge) 09/07/2024 Travel 09/02/2024 12:45 PM CDT - 09/02/2024 11:59 PM CDT Hospital Encounter [facility] [address] [place] [address] Suyapa Kelley, Erivn Oliveira MD Total Knee Arth Discharge Disposition: Home or Self Care (Routine Discharge) 09/02/2024 Travel 08/31/2024 12:56 PM CDT - 08/31/2024 11:59 PM CDT Hospital Encounter [facility] [address] [place] [address] Suyapa Kelley, Ervin Oliveira MD Total Knee Arth Discharge Disposition: Home or Self Care (Routine Discharge) 08/31/2024 Travel 08/27/2024 9:59 AM CDT - 08/27/2024 11:59 PM CDT Hospital Encounter [facility] [address] [place] [address] Kinjal Blackwood MD Scherer, Paul J, MD Montez, Sydney Howard, WAREHOUSE MAN Total Knee Arth Discharge Disposition: Home or Self Care (Routine Discharge) 08/27/2024 Travel 08/25/2024 Scan [facility] Scanned, [facility] 08/24/2024 12:42 PM CDT - 08/24/2024 11:59 PM CDT Hospital Encounter [facility] [address] [place] [address] Suyapa Kelley, Ervin Oliveira MD Total Knee Arth Discharge Disposition: Home or Self Care (Routine Discharge) 08/24/2024 Travel 08/20/2024 9:58 AM CDT - 08/20/2024 11:59 PM CDT Hospital Encounter [facility] [address] [place] [address] Kinjal Blackwood MD Scherer, Paul J, MD Montez, Sydney Howard, WAREHOUSE MAN Total Knee Arth Discharge Disposition: Home or Self Care (Routine Discharge) 08/20/2024 Travel 08/18/2024 3:29 PM CDT - 08/18/2024 11:59 PM CDT Hospital Encounter [facility] [address] [place] [address] Suyapa Kelley, Ervin Oliveira MD Total Knee Arth Discharge Disposition: Home or Self Care (Routine Discharge) 08/18/2024 Travel 08/12/2024 Scan [facility] Scanned, [facility] Image (SCAN); Procedure (SCAN) 08/11/2024 Scan [facility] Scanned, [facility] 08/05/2024 Telephone [facility] Family [facility] Internal [facility] [address] [place] [address] Kinjal Blackwood MD Surgical Clearance 07/22/2024 Telephone [facility] Family & Internal [facility] [address] [place] [address] Kinjal Blackwood MD Results 07/21/2024 9:20 AM CDT - 07/21/2024 11:59 PM CDT Hospital Encounter [facility] [address] [place] [address] Kinjal Blackwood MD Discharge Disposition: Home or Self Care (Routine Discharge) 07/21/2024 Results Follow-Up [facility] [address] [place] [address] Kinjal Blackwood MD LIPID PANEL 07/21/2024 Orders Only [facility] [address] [place] [address] Kinjal Blackwood MD 07/21/2024 Travel 07/20/2024 Scan [facility] Scanned, [facility] Lab (SCAN); ECG (SCAN) 07/15/2024 10:20 AM CDT Office Visit [facility] Family & Internal [address] [address] Kinjal Blackwood MD Surgical Clearance 07/15/2024 Travel 06/24/2024 Scan [facility] Scanned, [facility] Image (SCAN) 06/16/2024 Scan [facility] Scanned, [facility] from Last 3 Months Immunizations Immunization Administration [...] 10:14 AM CDT Height 154.9 cm (5' 1) 07/15/2024 10:14 AM CDT Body Mass Index 28.53 07/15/2024 10:14 AM CDT Plan of Treatment Upcoming Encounters Date Type Department Care Team (Late st Contact Info) Description 09/10/2024 1:00 PM CDT Appointment [facility] [address] [place] [address] [place] [address] [place] [address] Ervin Alaniz MD [address] [facility] [address] [place] [address] Sydney Montez, WAREHOUSE MAN 09/14/2024 11:15 AM CDT Appointment [facility] [address] [place] [address] [place] [address] [address] Ervin Alaniz MD [address] [facility] [address] [place] [address] Sydney Montez, WAREHOUSE MAN 09/17/2024 2:45 PM CDT Appointment [facility] [address] [place] [address] [place] [address] [place] [address] Ervin Alaniz MD [address] [facility] [address] [place] [address] 09/21/2024 11:15 AM CDT Appointment [facility] [address] [place] [address] [place] [address] [address] Ervin Alaniz MD [address] [facility] [address] [place] [address] Sydney Montez, WAREHOUSE MAN 09/24/2024 11:15 AM CDT Appointment [facility] [address] [place] [address] [place] [address] [facility] [address] [place] [address] Ervin Alaniz MD [address] [facility] [address] [place] [address] Sydney Montez, WAREHOUSE MAN 09/28/2024 11:15 AM CDT Appointment [facility] [address] [place] [address] [place] [address] [facility] [address] [place] [address] Ervin Alaniz MD [address] [facility] [address] [place] [address] Sydney Montez, WAREHOUSE MAN 01/17/2025 11:20 AM SWEEPER OPERATOR HIGHWAYS Office Visit [facility] Family & Internal Medicine - [place] [address] [place] [phone] [place] [address] [facility] [address] [address] Health Maintenance Due Date Last Done Comments Annual Medicare Wellness Visit 2010 DTaP, Tdap and Td Vaccines (1 - Tdap) 08/07/2010 08/06/2010 Pneumococcal Vaccine: 50+ Years (3 of 3 - PCV20 or PCV21) 05/07/2020 05/08/2015, 05/17/2010 RSV Immunization or 60+ Years (1 - 1-dose 75+ series) 2020 COVID-19 Vaccine ( - season) 2023 12/25/2022, 12/31/2021, 01/09/2021, Additional history exists Dexa Scan (General) Completed 05/18/2015 Colorectal Cancer Screening Colonoscopy (10 Years) Discontinued 05/30/2016 Hepatitis C Completed 05/17/2020 Zoster Vaccines Completed 04/03/2021, 01/22/2021 PHQ-2 (Physician [place]) Completed 05/31/2024 Meningococcal B Vaccine Aged Out No l onger eligible based on patient's age to complete this topic Meningococcal Vaccine Aged Out No jadon adelita eligible based on patient's age to complete this topic RSV Immunizations Under 20 Months Aged Out No longer eligible based on patient's age to complete this topic Procedures Procedure Name Priority Date/Time Associated Diagnosis Comments IMAGE GENERIC 08/12/2024 IMAGE GENERIC 08/12/2024 PROCEDURE GENERIC (SCAN ORDER) 08/12/2024 LIPID PANEL Routine 07/21/2024 9:25 AM CDT Primary hypertension Preop examination ECG GENERIC (SCAN ORDER) 07/20/2024 OUTSIDE LAB (SCAN ORDER) 07/20/2024 OUTSIDE LAB (SCAN ORDER) 07/20/2024 IMAGE GENERIC 06/24/2024 HEPATITIS C ANTIBODY W/RFX TO HCV RNA Routine 05/17/2020 7:56 AM CDT Need for hepatitis C screening test COLONOSCOPY Routine 05/30/2016 12:00 AM CDT BONE DENSITY/DEXA Routine 05/18/2015 10: 54 AM CDT from Last 3 Months or Most Recently Relevant to Health Maintenance Results * IMAGE GENERIC (08/12/2024) Only the most recent of3 resultswithin the time period is included. Anatomical Region Laterality Modality Other 08/12/2024 [facility] Scanned SCANNING Final Resu lt * PROCEDURE GENERIC (SCAN ORDER) (08/12/2024) 08/12/2024 [facility] Scanned SCANNING Final Resu lt * (ABNORMAL) LIPID PANEL (07/21/2024 9:25 AM CDT) CHOLESTEROL 208(H) <200.0 MG/DL 07/21/2024 10:22 AM CDT [facility] TRIGLYCERIDES 99 <150 MG/DL 07/21/2024 10:22 AM T [facility] HDL 42 >40.0 MG/DL 07/21/2024 10:22 AM [facility] LDL (CALCULATED) 146(H) <100 MG/DL 07/21/2024 10:22 AM [facility] NON HDL CHOLESTEROL 166(H) <130 MG/DL 07/21/2024 10:22 AM [facility] CHOL/HDL RATIO 5.0(H) 0.0 - 4.5 07/21/2024 10:22 AM [facility] VLDL CALCULATION 20 5 - 55 MG/DL 07/21/2024 10:22 AM [facility] LIPID INTERPRETATION 07/21/2024 10:22 AM [facility] Comment: [facility] CON[facility]ENS[facility] REPORT RECOMMENDATIONS: ADULT CHILD LOW RISK: CHOLESTEROL <200 <170 TRIGLYCERIDE <150 --- HDL >=60 --- LDL <100 <110 BORDERLINE: CHOLESTEROL 200-239 170-199 TRIGLYCERIDE 150-199 --- HDL 40-59 --- LDL 100-159 110-129 HIGH RISK: CHOLESTEROL >=240 >=200 TRIGLYCERIDE >=200 --- HDL <40 --- LDL >=160 >=130 07/21/2024 9:25 AM CDT Result [facility] Kinjal Blackwood MD LABORATORY Final Result [facility] [address] [place] [address], [place] [phone] * ECG GENERIC (SCAN ORDER) (07/20/2024) 07/20/2024 [facility] Scanned SCANNING Final Resu lt * OUTSIDE LAB (SCAN ORDER) (07/20/2024) Only the most recent of2 resultswithin the time period is included. 07/20/2024 [facility] [facility] Scanned SCANNING Final Resu lt * HEPATITIS C ANTIBODY W/RFX TO HCV [...] a test for HCV RNA (test code 78569) is suggested. For additional information please refer to http://education.[employer].Novavax/faq/JVO42q1 (This link is being provided for informational/ educational purposes only.) 05/17/2020 7:56 AM CDT 05/17/2020 11:54 PM CDT Result [facility] Christina Sutton MD LABORATORY Final Result [facility] [address] [place] [address] * Colonoscopy (05/30/2016 12:00 AM CDT) 05/30/2016 [...] AM CDT Narrative 05/18/2015 11:03 AM CDT [facility] ADMIT/SERVICE DATE: 05/18/15 ACCT: [id number] DISCHARGE DATE: : 1945 SEX: F ORD SITE: [facility] PT TYPE: REG CLI ORDERING MD: CHRISTINA SUTTON MD STUDY DATE REPORT # ORDER # EXT ORDER ID 05/18/15 [id number] PROC CODE: DEXASCAN PROCEDURE DESCRIPTION: XR DEXA [...] Procedure Note Jonathan Hood MD - 12/24/2017 CLAU REYNOSO ADMIT/SERVICE DATE:05/18/15 ACCT: [id number] DISCHARGE DATE: : 1945 SEX: F ORD SITE: [facility] PT TYPE: REG CLI ORDERING MD:CHRISTINA SUTTON MD STUDY DATE REPORT # ORDER # EXT ORDER ID 05/18/15 [id number] PROC CODE: DEXASCAN PROCEDURE DESCRIPTION: XR DEXA [...] to Health Maintenance Insurance [employer] Care Teams Flow Nurse Relationship Specialty [place] [address] [place] [address] PCP - General FAMILY PRACTICE 06/18/22
--- OUTSIDE RECORDS SUMMARY | 2024-09-09 12:58 | XMS_ITS | Encounter Summary ---
Author Organization [facility] Address [address] [place] [address] Care Team Providers Care Paster Hat Lining Name Role Phone Kinjal Blackwood MD Primary Care Provider [phone] Encounter Details Date Type Department Care Team (Latest Contact Info) Description 08/25/2024 Scan HEALTH INFO SRVCS Scanned, Doc Med Group Social History Tobacco Use Types Packs/Day Years [...] Info) Description 09/10/2024 1:00 PM CDT Appointment [facility] [address] [place], [place] [id number] [place] [address] [place] [address] Ervin Alaniz MD 3734 [facility] [address] [place] [phone] Sydney Montez, ICT HELP DESK TECHNICIAN 09/14/2024 11:15 AM CDT Appointment [facility] [address] [place] [address] [place] [address] [place] [address] Ervin Alaniz MD 2864 [facility] [address] [place] [phone] Sydney Montez, ICT HELP DESK TECHNICIAN 09/17/2024 2:45 PM CDT Appointment [facility] [address] [place] [address] [place] [address] [place] [address] Ervin Alaniz MD 7984 [facility] [address] [place] [phone] 09/21/2024 11:15 AM CDT Appointment [facility] [address] [place] [address] [place] [address] [address] Ervin Alaniz MD 7124 [facility] [address] [place] [phone] Sydney Montez, ICT HELP DESK TECHNICIAN 09/24/2024 11:15 AM CDT Appointment [facility] [address] [place] [address] [place] [address] [facility] [address] [place] [address] Ervin Alaniz MD 2425 [facility] [address] [place] [address] Sydney Montez, ICT HELP DESK TECHNICIAN 09/28/2024 11:15 AM CDT Appointment [facility] [address] [place] [address] [place] [address] [facility] [address] Ervin Alaniz MD 1591 [facility] [address] [place] [address] Sydney Montez, ICT HELP DESK TECHNICIAN 01/17/2025 11:20 AM DENTURE TECHNICIAN Office Visit [facility] Medical Group Family & Internal Medicine - [place] [address] [place] [phone] [place] [address] [facility]. [address] [address] documented as of this encounter Visit Diagnoses Not on filedocumented in this encounter Additional Health Concerns Assessment Noted Time PHQ-9 Depression Total Score: 1 05/16/19 22 8:25 AM CDT documented as of this encounter Care Teams Paster Hat Lining Relationship Specialty Start Date End Date Kinjal Blackwood MD [address] [place] [address]. [address] [address] PCP - General FAMILY PRACTICE 06/18/22 documented as of this encounter
--- OUTSIDE RECORDS SUMMARY | 2024-09-09 12:58 | XMS_ITS | Encounter Summary ---
Author Organization [facility] Address [address] [place] [address] Care Team Providers Care Gourmet Coffee Attendant Name Role Phone Kinjal Blackwood MD Primary Care Provider [phone] Encounter Details Date Type Department Care Team (Late st Contact Info) Description 07/21/2024 Results Follow-Up [facility] [address] [place] [address] [place] [address] [place], [place] [phone] LIPID PANEL Social History Tobacco Use Types Packs/Day Years [...] Info) Description 09/10/2024 1:00 PM CDT Appointment [facility] [address] [place] [address] [place] [address] [place] [address] Ervin Alaniz MD 9415 [facility] [address] [place] [address] Sydney Montez, SPRING MANUFACTURING SET UP TECHNICIAN 09/14/2024 11:15 AM CDT Appointment [facility] [address] [place] [address] [place] [address] [place] [address] Ervin Alaniz MD 7972 [facility] [address] [place] [address] Sydney Montez, SPRING MANUFACTURING SET UP TECHNICIAN 09/17/2024 2:45 PM CDT Appointment [facility] [address] [place] [address] [place] [address] [place] [address] Ervin Alaniz MD 8544 [facility] [address] [place] [phone] 09/21/2024 11:15 AM CDT Appointment [facility] [address] [place] [address] [place] [address] [place] [address] Ervin Alaniz MD 7835 [facility] [address] [place] [phone] Sydney Montez, SPRING MANUFACTURING SET UP TECHNICIAN 09/24/2024 11:15 AM CDT Appointment [facility] [address] [place] [address] [place] [address] [place] [address] Ervin Alaniz MD 1797 [facility] [address] [place] [address] Sydney Montez, SPRING MANUFACTURING SET UP TECHNICIAN 09/28/2024 11:15 AM CDT Appointment [facility] [address] [place] [address] [place] [address] [address] Ervin Alaniz MD 4807 [facility] [address] [place] [address] Sydney Montez, SPRING MANUFACTURING SET UP TECHNICIAN 01/17/2025 11:20 AM SMOKEHOUSE WORKER Office Visit [facility] Medical [facility] Family & Internal Medicine - [address] [address] [place] [address] [facility] [address] [address] documented as of this encounter Visit Diagnoses Not on filedocumented in this encounter Additional Health Concerns Assessment Noted Time PHQ-9 Depression Total Score: 1 05/16/19 22 8:25 AM CDT documented as of this encounter Care Teams Gourmet Coffee Attendant Relationship Specialty [place] [address] [address] PCP - General FAMILY PRACTICE 06/18/22 documented as of this encounter
--- OUTSIDE RECORDS SUMMARY | 2024-09-09 12:58 | XMS_ITS | Encounter Summary ---
Author Organization [facility] Address [address] [place] [address] Care Team Providers Care Product Support Specialist Name Role Phone Kinjal Blackwood MD Primary Care Provider [phone] Reason for Visit * Reason Comments Knee Pain * Physical Therapy (Routine) - Authorized Specialty Diagnoses / Procedures Referred By Contac t Referred To Contact PHYSICAL THERAPY / [facility] Physical Therapy Diagnoses R TKA Procedures EVAL Ervin Alaniz MD [address] [facility] [address] [place] [address] Phone: tel: fax: [facility] [address] [place] [address] Phone: tel: fax: Referral ID Status Reason Start Date Expiration Date Visits Requested Visits Authorized [id number] Authorized Physical Therapy 08/18/2024 99 99 Encounter Details Date Type Department Care Team (Latest Contact Info) Description 09/07/2024 10:35 AM CDT - 09/07/2024 11:59 PM CDT Hospital Encounter [facility] [address] [place], [place] [phone] [place] [address] [place] [address] Ervin Alaniz MD 4[address] [facility] [address] [place] [address] Sydney Monetz, FACTORY SUPERVISOR Knee Pain Discharge Disposition: Home or Self Care (Routine Discharge) Social History Tobacco Use Types Packs/Day Years [...] on file documented as of this encounter Medications at Time of Discharge acetaminophen (TYLENOL) 500 MG tablet Take 1 tablet (500 mg total) by mouth every 6 (six) hours as needed for Pain. amLODIPine (NORVASC) 10 MG tabletIndications:P rimary hypertension Take 1 tablet (10 mg total) by mouth daily. 90 tablet 3 07/15/2024 lisinopril (PRINIVIL) 20 MG tabletIndications:P rimary hypertension Take 1 tablet (20 mg total) by mouth daily. 90 tablet 3 07/15/2024 multi vitamin/minerals (THERA-M ENHANCED) tablet Take 1 tablet by mouth daily. documented as of this encounter Progress Notes * Sydney Montez PTA - 09/07/2024 10:45 AM CDT Physical Therapy Visit Note: Patient Name: Clau Hollis Diagnosis: Osteoarthritis of right knee (primary encounter diagnosis) Presence of total knee joint prosthesis, right SUBJECTIVE Therapy Visit Start Time: 1042 Stop Time: 1125 Time Calculation (min): 43 min Treatment Day: 7 Total Approved Visits: 24 visits per POC, ins per necessity Therapy Plan of Care: 2x/week for 6 weeks Current Therapy Orders: eval and treat Diagnosis: s/p R TKA Referring Provider: Ervin Alaniz MD Next MD Visit: 09/08/24 Date of Surgery/Weeks Post-Op: 08/11/24 Subjective Note: Patient reports that her knee is a little sore today. States that she mopped her great room yesterday and that may be cause of increased soreness. Didn't notice it at the time, but was tired last night and a little achy. Noticing that steps are getting easier and able to go up/down in step over step pattern. Response to prior treatment: felt good Compliance to Home Program: compliant Reported Falls since last visit: no Medications changes since last visit : no Pain Current Location of Pain: R knee Current Pain Level: 0/10 currently, gets occasional pains that are 1/10 OBJECTIVE Treatment provided today: Therapeutic Exercise - 98940 Number of Minutes - 51032: 43 PROM: 110 in supine with strap AROM: 0-107 heel slide without strap Cardio Equipment: Octane S2, L3 x 5' Exercise: slant board L4 x 1 min Exercise: heel raises/ toe raises x 20 ea at rail Exercise: standing knee flexion x 15 R Exercise: standing marching (alt) x 15 ea with 1 UE support Exercise: seated heel slides x 10 (LLE assist as needed) Exercise: supine heel slides x 10, with strap x 10 Exercise: step ups 4 x 15 R, fwd step downs 4 step x 15 with R on step - UE support Exercise: quad sets 3 sec hold x 15 Exercise: SLR x 10 Exercise: TKE green band x 15 R Exercise: sit to stands with R foot slightly posterior to L x 10 - no UE assist - mat at lowest level Exercise: LAQ x 15 R Exercise: sidestepping at rail 24' ea with vcs for positioning, retro walking for knee ext 24' x 2,walking high knees 24' x 2 for stability Home Exercise Program Current Home Exercise Program: continue HEP Education Was Education Provided: Yes Topic: gait compensations, progress Recipient: Patient Method: Demonstration, Verbal Response: Verbalized understanding, Demonstrates adequately ASSESSMENT Assessment Note: Improved overall ROM noted today. Progressed strengthening activiites to include step ups/downs, TKE and advanced gait activites. Pt able to get full ext in supine with quad set, but still lacks full extension with heel strike with ambulation. Pt challenged with balance/stability with advanced gait activiites. Response to Treatment : no complaints Goal Progression: ongoing Continue on Functional Deficit of: knee pain with limited ROM impacting gait endurance PLAN Plan Next Visit Plan: progress knee flexion ROM, gentle strengthening when appropriate Total Time Total Time in Minutes: 43 Timed Code Treatment Minutes : 43 documented in this encounter Plan of Treatment Upcoming Encounters Date Type Department Care Team (Late st Contact [facility]) Description 09/10/2024 1:00 PM CDT Appointment [facility]hab [address] [facility] [place] [address] [place] [address] [place] [address] Ervin Alaniz MD [address] [facility] [address] [place] [address] Sydney Montez PTA 09/14/2024 11:15 AM CDT Appointment [facility] [address] [place] [address] [place] [address] [address] [place] [address] Ervin Alaniz MD 8429 [facility] [address] [place] [address] Sydney Montez PTA 09/17/2024 2:45 PM CDT Appointment [facility]hab [address] [place], [place] [address] [place] [address] [place] [address] Ervin Alaniz MD 05[address] [facility] [address] [place] [address] 09/21/2024 11:15 AM CDT Appointment [facility] [address] [place] [address] [place] [address] [facility] [address] [place] [address] Ervin Alaniz MD 6[address] [facility] [address] [place] [phone] Sydney Montez, FACTORY SUPERVISOR 09/24/2024 11:15 AM CDT Appointment [facility] [address] [place] [address] [place] [address] [facility]. [address] [address] Ervin Alaniz MD [address] [facility] [address] [place] [address] Sydney Montez, FACTORY SUPERVISOR 09/28/2024 11:15 AM CDT Appointment [facility]hab [address] [place] [address] [place] [address] [facility]. [address] [address] Ervin Alaniz MD 78[address] [facility] [address] [place] [phone] Sydney Montez, FACTORY SUPERVISOR 01/17/2025 11:20 AM WASTE EXAMINER Office Visit [facility] Medical Group Family & Internal Medicine - [place] [address] [place] [phone] [place] [address] [place] [address] documented as of this encounter Visit Diagnoses Diagnosis Osteoarthritis of right knee- Primary Osteoarthrosis, unspecified whether generalized or localized, lower leg Presence of total knee joint prosthesis, right documented in this encounter Additional Health Concerns Assessment Noted Time PHQ-9 Depression Total Score: 1 05/16/19 22 8:25 AM CDT documented as of this encounter Care Teams Product Support Specialist Relationship Specialty [place] [address] [place] [address] PCP - General FAMILY PRACTICE 06/18/22 documented as of this encounter
--- OUTSIDE RECORDS SUMMARY | 2024-09-09 12:58 | XMS_ITS | Continuity of Care Document ---
Author Organization [facility] Address [address] [place] [address] [address] [place] [address] Phone Care Team Providers Care Animal Care Attendant Name Role Phone Jorgito Gonsalez DO Unavailable Unavailable Advance Directives Directive Yes / No Effective Date File Name No Information Encounters Encounter Description Practice Location Reason(s) For Visit Diagnoses Date Provider Providers Copied on Encounter [facility], [address], [place], [place], [id number], [place] tel:[phone] [facility] No Information Wallace Pratt. [address] [place], [address], [place]. tel: [phone] Family History Family Member Type Diagnosis Age At Onset No Information Payers Payer name Insurance type Covered green party ID Authoriza tion(s) No Information Social History Type Description Quantity Date Captured Comments Sex Female Smoking Status No Information Chief Complaint And Reason For Visit No Information Reason For Referral Reason For Referral No Information History Of Present Illness Encounter Date Complaint History Of Prese nt Illness No Information Functional Status Date Functional Assessmen t No Information Instructions Date Instruction Additional Infor mation No Information Assessments Type Assessment Date No Information Patient Care Teams Name Effective Dates (start - stop) Status Members No Information
--- OUTSIDE RECORDS SUMMARY | 2024-09-09 12:58 | XMS_ITS | Encounter Summary ---
Author Organization [facility] Address [address] [place] [address] Care Team Providers Care Machine Spring Former Name Role Phone Kinjal Blackwood MD Primary Care Provider [phone] Encounter Details Date Type Department Care Team (Late st Contact Info) Description 01/08/2023 Prep for Procedure [facility] Medical [facility] General Surgery [facility] [address] [facility], [address] [place] [address] Wilma Bourgeois MD [address] [facility] [place] [address] Social History Tobacco Use Types [...] Description 09/10/2024 1:00 PM CDT Appointment [facility] Outpatient [facility]hab [address] [place] [address], [place] [address] [place] [address] [place] [address] Ervin Alaniz MD 8664 [facility] [address] [place] [address] Sydney Montez, AIRCRAFT LOADMASTER SUPERINTENDENT 09/14/2024 11:15 AM CDT Appointment [facility]patient [facility]hab [address] [place] [address] [place] [address] [place] [address] Ervin Alaniz MD 7973 [facility] [address] [place] [address] Sydney Montez, AIRCRAFT LOADMASTER SUPERINTENDENT 09/17/2024 2:45 PM CDT Appointment [facility]patient [facility]hab [address] [place] [address] [place] [address] [place] [address] Ervin Alaniz MD 3[address] [facility] [address] [place] [phone] 09/21/2024 11:15 AM CDT Appointment [facility]patient [facility]hab [address] [place] [address] [place] [address] [place] [address] Ervin Alaniz MD 30[address] [facility] [address] [place] [phone] Sydney Montez, AIRCRAFT LOADMASTER SUPERINTENDENT 09/24/2024 11:15 AM CDT Appointment [facility]hab [address] [place] [address] [place] [address] [place] [address] Ervin Alaniz MD 46[address] [facility] [address] [place] [address] Sydney Montez, AIRCRAFT LOADMASTER SUPERINTENDENT 09/28/2024 11:15 AM CDT Appointment [facility]hab [address] [place] [address] [place] [address] [facility] [address] [address] Ervin Alaniz MD 4807 [facility] [address] [place] [address] Sydney Montez, AIRCRAFT LOADMASTER SUPERINTENDENT 01/17/2025 11:20 AM NURSE INTERN Office Visit [facility] Medical Group Family & Internal Medicine - [address] [phone] [place] [address] [facility] [address] [address] documented as of this encounter Visit Diagnoses Diagnosis Positive colorectal cancer screening using Cologuard test- Primary documented in this encounter Additional Health Concerns Assessment Noted Time PHQ-9 Depression Total Score: 1 05/16/19 22 8:25 AM CDT documented as of this encounter Care Teams Machine Spring Former Relationship Specialty Start Date End Date Kinjal Blackwood MD [address] [place] [address]. [address] [place] [address] PCP - General FAMILY PRACTICE 06/18/22 documented as of this encounter
== END 2024-07-20 12:56 ==
PROVIDERS: PCP Family Medicine; Visit Provider Family Medicine
DX: Z01.818 Encounter for other preprocedural examination (principal)
CPT/HCPCS: 71046

== ENCOUNTER 2024-08-12 03:04 | Day surgery (SDC) | payer MEDICARE, SELFPAY ==
[2024-07-20 12:12] VITALS: BMI 27.3
--- NOTE | 2024-07-20 12:25 | PC.NURSE ---
Report to the Outpatient Waiting Room, entrance under the green pavilion located off [facility], at time ___06:00am____ on date __08/12/24 . Planned Procedure Time: __07:30am .? Time changes happen often and if your time is changed the preop area will call you the afternoon before. - You and your visitor will be asked to self-screen and do not enter if you have any COVID symptoms. Please call surgeon if you need to reschedule. - A mask is optional within the hospital at this time. Patients may have clear liquids (water, carbonated beverages, clear teas, apple juice) until 3 hours prior to surgery with a maximum of 20 ounces. - No food from midnight until time of surgery and no smoking, or chewing tobacco (or any form of nicotine). No chewing gum, candy or mints.( 0430am) - Take only the following medications with a SIP of water on the morning of surgery: Amlodipine DO NOT STOP ANY OF YOUR OTHER PRESCRIPTION MEDICATIONS PRIOR TO SURGERY EXCEPT THE FOLLOWING Hold all vitamins and supplements for 3 days per anesthesiologist. Medications to discontinue per physician None Date to take last dose None Please no make-up, nail romansh, hairspray, perfume, deodorant, or body powder the day of surgery.? No jewelry (including any body piercings) or valuables the day of surgery, leave them at home.? Please take a shower or bath the night before, or the morning of, surgery with an antibacterial soap.? Wear comfortable, loose fitting clothing.? Children are encouraged to wear pajamas. - Jewelry must be removed prior to entering the operating room.? Rings and piercings that are not removed may be cut off. - The hospital will not accept responsibility for valuables.? - Please leave all valuables, including medications, at home the day of surgery. If you are going home after surgery, a licensed clark driver must drive you home.? - NO public transportation without another adult if you receive anesthesia. - We recommend that an adult stay with you for 24 hours following discharge. - We also recommend that you do not drive, make important decision, drink alcoholic beverages, or take any drugs that were not prescribed by your health care provider for at least 24 hours after your discharge time. Follow any additional instructions given to you from your surgeon. Telephone instructions given to ___Patient and asked if any additional questions and then verbalized understanding. Patient advised to call surgeon office or pre surgery nurse liaison [phone] if any additional questions.
--- NOTE | 2024-08-11 07:16 | PM.IMHP ---
H&P: HPI History of Present Illness Date/Time: 08/11/24 07:16 Chief Complaint: DJD right knee Narrative: 79-year-old female who presents today for a right total knee arthroplasty. Patient underwent left total knee arthroplasty in January 2023 and is doing well is happy with her results. Right knee continues to be bothersome for. She has [id number] medial compartment osteoarthritis. She has been treating this with cortisone injections, the last injection was in April of this year which only helped for couple days. Patient feels that she would rather proceed with total knee arthroplasty on the right knee rather than continue nonsurgical treatment. Review of Systems Review of Systems: All systems reviewed & are unremarkable except as noted in HPI and below PMFSH Past Medical History Medical History Hypertension Surgical History Surgical History History of tubal ligation History of ear surgery History of left knee replacement 01/21/23 [place] History of left hip replacement Oct 2020- [place] Family History Family History Father Abdominal aneurysm Mother Alzheimer disease Social History Social History Smoking status: Never smoker Alcohol intake: current Alcohol use details: 1 per year Substance use: never Substance use type: does not use Do You Feel Safe in your Home?: Yes Lack of Transportation: No Lack of Food: Never True Current Housing: I Have Housing Concerned About Future Housing: No Difficulty Paying Gas/Electric Bills: No Difficulty Paying for Meds: No Currently Unemployed: No Education: Associate Degree Difficulty w/ Childcare or Family Care: No Living arrangements: alone Occupation/Education: retired Spiritual care concerns: No Meds Home Medications and Allergies Home Medications ?Medication ?Instructions ?Recorded ?Confirmed ?Type amlodipine 10 mg tablet 10 mg PO DAILY 06/06/23 07/20/24 History lisinopril 20 mg tablet 20 mg PO DAILY 06/06/23 07/20/24 History multivitamin 1 tablet PO DAILY 06/06/23 07/20/24 History Allergies Allergy/AdvReac Type Severity Reaction Status Date / Time celecoxib (From Celebrex) Allergy Severe severe pain Verified 07/20/24 12:10 diphenhydramine (From AdvReac Intermediate Unknown Verified 07/20/24 12:10 Benadryl) Exam Narrative: 79-year-old female alert pleasant. She is 5 ft tall and 151 lb. BMI is 29.5. She walks with a minimal limp. She has a fixed varus deformity of the right knee. Range of motion is from 3-125 degrees. [id number] effusion. Mild tenderness over the medial joint line to palpation. Normal stability in the knee. Hip range of motion is full without discomfort, negative Stinchfield maneuver. Normal quad strength. Normal sensation both lower extremities. There is no edema in either lower extremity. 2+ dorsalis pedis and posterior tibial artery pulse palpable in the right foot. Resp: Auscultation: clear to auscultation bilaterally Cardio: Rate: regular rate Rhythm: regular rhythm Assessment and Plan Assessment and plan (1) Primary osteoarthritis of right knee: Code(s): M17.11 - Unilateral primary osteoarthritis, right knee Status: Acute Assessment and Plan: 79-year-old female who has pedj-on-ldop medial compartment osteoarthritis the right knee. Patient is having continued symptoms and feels that nonsurgical treatment is not providing enough relief. She is still a very active 79-year-old and wishes to remain active. She would like to proceed total knee arthroplasty at this point. Surgical procedures well as the risks and complications were discussed in detail and all questions were answered and we will proceed. Patient will avoid any aspirin or ibuprofen products 1 week prior to surgery. She will see her primary care doctor for pre-surgical clearance. Hemoglobin 13.8 and platelets were 255, Chem panel is all within normal limits creatinine 0.71
[2024-08-12] VITALS (11 sets, daily range): BP systolic 117–140; BP diastolic 64–74; PULSE 91–105; RESP 14–20; TEMP 36.1–37.1; O2SAT 92–100; BMI 28.8
--- NOTE | ~2024-08-12 | XR_ITS ---
EXAMINATION: [id number] DATE: 08/12/2024 10:44 CDT INDICATION: Right total knee arthroplasty TECHNIQUE: 2 views right knee FINDINGS: There is a right total knee arthroplasty in expected position. Subcutaneous gas with fluid and air in the joint are consistent with recent surgery. No evidence of periprosthetic fracture. IMPRESSION: 1. Recent right total knee arthroplasty. Reviewed, dictated and finalized at location B.
--- OUTSIDE RECORDS SUMMARY | 2024-08-12 03:32 | XMS_ITS | Data Portability ---
Author Organization [place] [facility] [email or web address], Main Office Address [address] [place] [address] Care Team Providers Care [place]erry Terminal Supervisor Name Role Phone AQUILINO WILLARD Primary Care Provider [phone] AQUILINO WILLARD Referring Provider [phone] Assessment Encounter Date Assessment Date Assessment LastModified [...] more than half the time spent in synk-bh-qham care. Not available 12/14/2022 16:26:22 02/03/2023 02/03/2023 [...] had no medial tenderness. There is a itme-wf-tguejpdc effusion the knee typical at this point. [...] more than half the time spent in ysip-nv-drhm care. Not available 04/20/2023 14:46:42 Plan of Treatment Reminders Order Date Submit Date Provider Last Modified By Organization Details Last Modified Time Details Appointments None recorded. Lab None recorded. Referral physical therapist referral 2023 024 [facility], [address] [place], [address], 4 17:13:12 Procedures injection/a spiration joint/bursa (PROC) - in office procedure, administere d by provider 2023 024 [email or web address] In-Office Order, Internal Use Only DO Not Attach Compendium DO Not Attach Compendium, Do Not Delete/merge, [id number] 10:07:37 Surgeries None recorded. Imaging XR, lumbar spine 2023 024 [email or web address] [facility] [place], [address], [place], [address], 4 10:14:45 XR, pelvis 2023 024 [email or web address] [facility] [place] [facility], [address], [address], 4 10:14:45 XR, knee 2023 024 [email or web address] [facility] [place] [facility], [address], [address], 4 14:33:22 Medication Orders Kenalog 10 mg/mL suspension for injection [address]/Pharmacy #[id number], [address], [address], 4 13:28:07 ropivacaine (PF) 5 mg/mL (0.5 %) injection solution [address]/Pharmacy #6940, [address], [address], 4 13:28:07 Medrol (Lucas) 4 mg tablets in a dose pack [address]/Pharmacy #6911, [address], [address], 4 13:28:07 Celebrex 200 mg capsule [address]/Pharmacy #6920, [address], [address], 4 19:57:23 Patient TargetsNo targets recorded. Patient [...] 6.0 x10'3 /uL 4.2-10 .8 Not Available [facility] (Lab) [address] [place], [address], 01/09/2023 12:06:25 01/10/20 23 01/09/2023 CBC/C OMPLE TE BLD COUNT W/DIF F red blood cells 4.24 x10'6 /uL 3.80-5 .20 Not Available [facility] (Lab) [address] [place], [address], 01/09/2023 12:06:25 01/10/20 23 01/09/2023 CBC/C OMPLE TE BLD COUNT W/DIF F hemoglobin 13.5 g/dL 12.0-1 5.6 Not Available [facility] (Lab) [address] [place], [address], 01/09/2023 12:06:25 01/10/20 23 01/09/2023 CBC/C OMPLE TE BLD COUNT W/DIF F hematocrit 40.4 % 35.7-4 5.7 Not Available [facility] (Lab) [address] [place], [address], 01/09/2023 12:06:25 01/10/2001/09/2023 CBC/C OMPLE TE BLD COUNT W/DIF F mean red cell volume 95.3 fL 82.0-9 9.0 Not Available [facility] (Lab) [address] [place], [address], 01/09/2023 12:06:25 01/10/20 23 01/09/2023 CBC/C OMPLE TE BLD COUNT W/DIF F mean red cell hemoglobin 31.8 pg 27.0-3 3.0 Not Available [facility] (Lab) [address] [place], [address], 01/09/2023 12:06:25 01/10/20 23 01/09/2023 CBC/C OMPLE TE BLD COUNT W/DIF F mean RBC HGB concentratio n 33.4 g/dL 31.0-3 6.0 Not Available [facility] (Lab) [address] [place], [address], 01/09/2023 12:06:25 01/10/20 23 01/09/2023 CBC/C OMPLE TE BLD COUNT W/DIF F red cell distribution width 12.9 % 11.8-1 5.5 Not Available [facility] (Lab) [address] [place], [address], 01/09/2023 12:06:25 01/10/20 23 01/09/2023 CBC/C OMPLE TE BLD COUNT W/DIF F platelets 238 x10'3 /uL 150-40 0 Not Available [facility] (Lab) [address] [place], [address], 01/09/2023 12:06:25 01/10/20 23 01/09/2023 CBC/C OMPLE TE BLD COUNT W/DIF F mean platelet volume 11.3 fL 9.0-12 .4 Not Available [facility] (Lab) [address] [place], [address], 01/09/2023 12:06:25 01/10/20 23 01/09/2023 CBC/C OMPLE TE BLD COUNT W/DIF F neutrophils 52.0 % 39.0-7 2.0 Not Available [facility] (Lab) [address] [place], [address], 01/09/2023 12:06:25 01/10/20 23 01/09/2023 CBC/C OMPLE TE BLD COUNT W/DIF F lymphocytes 34.7 % 16.0-4 7.0 Not Available [facility] (Lab) [address] [place], [address], 01/09/2023 12:06:25 01/10/20 23 01/09/2023 CBC/C OMPLE TE BLD COUNT W/DIF F monocytes 9.5 % 5.0-12 .0 Not Available [facility] (Lab) [address] [place], [address], 01/09/2023 12:06:25 01/10/2001/09/2023 CBC/C OMPLE TE BLD COUNT W/DIF F eosinophils 3.0 % 1.0-7. 0 Not Available [facility] (Lab) [address] [place], [address], 01/09/2023 12:06:25 01/10/2001/09/2023 CBC/C OMPLE TE BLD COUNT W/DIF F basophils 0.5 % 0.0-2. 0 Not Available [facility] (Lab) [address] [place], [address], 01/09/2023 12:06:25 01/10/20 23 01/09/2023 CBC/C OMPLE TE BLD COUNT W/DIF F immature granulocytes 0.3 % 0.00-0 .50 Not Available [facility] (Lab) [address] [place], [address], 01/09/2023 12:06:25 01/10/20 23 01/09/2023 CBC/C OMPLE TE BLD COUNT W/DIF F neutrophils, absolute count 3.13 x10'3 /uL 1.5-8. 0 Not Available [facility] (Lab) [address] [place], [address], 01/09/2023 12:06:25 01/10/20 23 01/09/2023 CBC/C OMPLE TE BLD COUNT W/DIF F lymphocytes, absolute count 2.09 x10'3 /uL 1.07-3 .43 Not Available [facility] (Lab) [address] [place], [address], 01/09/2023 12:06:25 01/10/20 23 01/09/2023 CBC/C OMPLE TE BLD COUNT W/DIF F monocytes, absolute count 0.57 x10'3 /uL 0.29-0 .99 Not Available [facility] (Lab) [address] [place], [address], 01/09/2023 12:06:25 01/10/2001/09/2023 CBC/C OMPLE TE BLD COUNT W/DIF F eosinophils, absolute count 0.18 x10'3 /uL 0.02-0 .53 Not Available [facility] (Lab) [address] [place], [address], 01/09/2023 12:06:25 01/10/20 23 01/09/2023 CBC/C OMPLE TE BLD COUNT W/DIF F basophils, absolute count 0.03 x10'3 /uL 0.01-0 .08 Not Available [facility] (Lab) [address] [place], [address], 01/09/2023 12:06:25 01/10/20 23 01/09/2023 CBC/C OMPLE TE BLD COUNT W/DIF F immature granulocytes ,absolute 0.02 x10'3 /uL 0.00-0 .05 Not Available [facility] (Lab) [address] [place], [address], 01/09/2023 12:06:25 01/10/2001/09/2023 CBC/C OMPLE TE BLD COUNT W/DIF F nucleated red blood cells 0.0 % -0 Not Available [facility] (Lab) [address] [place], [address], 01/09/2023 12:06:25 01/10/20 23 01/09/2023 CBC/C OMPLE TE BLD COUNT W/DIF F NRBC# 0.00 x10'3 /uL Not Available [facility] (Lab) [address] [place], [address], 01/09/2023 12:06:25 01/10/20 23 01/09/2023 BASIC METAB OLIC PANEL sodium 137 mmol/ L 137-14 5 Not Available [facility] (Lab) [address] [place], [address], 01/09/2023 12:23:11 01/10/2001/09/2023 BASIC METAB OLIC PANEL potassium 3.7 mmol/ L 3.5-5. 1 Not Available [facility] (Lab) [address] [place], [address], 01/09/2023 12:23:11 01/10/20 23 01/09/2023 BASIC METAB OLIC PANEL chloride 103 mmol/ L 98-107 Not Available [facility] (Lab) [address] [place], [address], 01/09/2023 12:23:11 01/10/20 23 01/09/2023 BASIC METAB OLIC PANEL carbon dioxide 28 mmol/ L 22-30 Not Available [facility] (Lab) [address] [place], [address], 01/09/2023 12:23:11 01/10/20 23 01/09/2023 BASIC METAB OLIC PANEL anion gap 9.7 mmol/ L 14-22 low Not Available [facility] (Lab) [address] [place], [address], 01/09/2023 12:23:11 01/10/20 23 01/09/2023 BASIC METAB OLIC PANEL glucose 118 mg/dL 70-99 high Not Available [facility] (Lab) [address] [place], [address], 01/09/2023 12:23:11 01/10/20 23 01/09/2023 BASIC METAB OLIC PANEL BUN 15 mg/dL 8-19 Not Available [facility] (Lab) [address] [facility], [place], [address], 01/09/2023 12:23:11 01/10/20 23 01/09/2023 BASIC METAB OLIC PANEL creatinine 0.73 mg/dL 0.66-1 .25 Not Available [facility] (Lab) [address] [facility], [place], [address], 01/09/2023 12:23:11 01/10/20 23 01/09/2023 BASIC METAB OLIC PANEL GFR >60 Refer ence Range : [place] ge GFR Healt hy Adult : >60 [...] or ethni c subgr oups, such as ok nics. Outsi de the valid ated sara [...] calcu lator is avail able on the [facility] websi te: https ://vasiliy w.analisa mc.o rg/pr ofess ional s/kdo qi/gf r_cal culat or Not Available [facility] (Lab) [address] [place], [address], 01/09/2023 12:23:11 01/10/20 23 01/09/2023 BASIC METAB OLIC PANEL calcium 10.1 mg/dL 8.4-10 .2 Not Available [facility] (Lab) [address] [place], [address], 01/09/2023 12:23:11 01/10/20 23 01/09/2023 TYPE AND SCREE N patient ABO group and Rh A POSITI VE Not Available [facility] (Lab) [address] [place], [address], 01/09/2023 15:01:31 01/10/2001/09/2023 TYPE AND SCREE N patient antibody screen NEGATI VE Not Available [facility] (Lab) [address] [place], [address], 01/09/2023 15:01:31 01/10/20 23 01/09/2023 MRSA/ STAPH AUREU S, NASAL , PCR MRSA, nasal NEGATI VE Not Available [facility] (Lab) [address] [place], [address], 01/09/2023 18:57:41 01/10/20 23 01/09/2023 MRSA/ STAPH AUREU S, NASAL , PCR staph aureus, nasal NEGATI VE Not Available [facility] (Lab) [address] [place], [address], 01/09/2023 18:57:41 01/23/20 23 01/22/2023 BASIC METAB OLIC PANEL sodium 139 mmol/ L 137-14 5 Not Available [facility] (Lab) [address] [place], [address], 01/22/2023 08:14:47 01/23/20 23 01/22/2023 BASIC METAB OLIC PANEL potassium 3.9 mmol/ L 3.5-5. 1 Not Available [facility] (Lab) [address] [place], [address], 01/22/2023 08:14:47 01/23/2001/22/2023 BASIC METAB OLIC PANEL chloride 104 mmol/ L 98-107 Not Available [facility] (Lab) [address] [place], [address], 01/22/2023 08:14:47 01/23/2001/22/2023 BASIC METAB OLIC PANEL carbon dioxide 23 mmol/ L 22-30 Not Available [facility] (Lab) [address] [facility] [place], [address], 01/22/2023 08:14:47 01/23/2001/22/2023 BASIC METAB OLIC PANEL anion gap 15.9 mmol/ L 14- Not Available [facility] (Lab) [address] [place], [address], 01/22/2023 08:14:47 01/23/20 23 01/22/2023 BASIC METAB OLIC PANEL glucose 159 mg/dL 70-99 high Not Available [facility] (Lab) [address] [place], [address], 01/22/2023 08:14:47 01/23/20 23 01/22/2023 BASIC METAB OLIC PANEL BUN 19 mg/dL 8-19 Not Available [facility] (Lab) [address] [place], [address], 01/22/2023 08:14:47 01/23/2001/22/2023 BASIC METAB OLIC PANEL creatinine 0.85 mg/dL 0.66-1 .25 Not Available [facility] (Lab) [address] [place], [address], 01/22/2023 08:14:47 01/23/20 23 01/22/2023 BASIC METAB OLIC PANEL GFR >60 Refer ence Range : [place] ge GFR Healt hy Adult : >60 [...] calcu lator is avail able on the [facility] websi te: https ://vasiliy w.analisa mc.o scotty/pr margaritaess ional s/kdo qi/gf r_cal culat or Not Available [facility] (Lab) [address] [place], [address], 01/22/2023 08:14:47 01/23/2001/22/2023 BASIC METAB OLIC PANEL calcium 10.0 mg/dL 8.4-10 .2 Not Available [facility] (Lab) [address] [place], [address], 01/22/2023 08:14:47 01/23/2001/22/2023 CBC W/O DIFFE URBANO AL white blood cells 16.5 x10'3 /uL 4.2-10 .8 high Not Available [facility] (Lab) [address] [place], [address], 01/22/2023 08:27:59 01/23/20 23 01/22/2023 CBC W/O DIFFE RENTI AL red blood cells 3.61 x10'6 /uL 3.80-5 .20 low Not Available [facility] (Lab) [address] [place], [address], 01/22/2023 08:27:59 01/23/20 23 01/22/2023 CBC W/O DIFFE RENTI AL hemoglobin 11.7 g/dL 12.0-1 5.6 low Not Available [facility] (Lab) [address] [place], [address], 01/22/2023 08:27:59 01/23/2001/22/2023 CBC W/O DIFFE RENTI AL hematocrit 34.9 % 35.7-4 5.7 low Not Available [facility] (Lab) [address] [place], [address], 01/22/2023 08:27:59 01/23/20 23 01/22/2023 CBC W/O DIFFE RENTI AL mean red cell volume 96.7 fL 82.0-9 9.0 Not Available [facility] (Lab) [address] [place], [address], 01/22/2023 08:27:59 01/23/20 23 01/22/2023 CBC W/O DIFFE RENTI AL mean red cell hemoglobin 32.4 pg 27.0-3 3.0 Not Available [facility] (Lab) [address] [place], [address], 01/22/2023 08:27:59 01/23/20 23 01/22/2023 CBC W/O DIFFE RENTI AL mean RBC HGB concentratio n 33.5 g/dL 31.0-3 6.0 Not Available [facility] (Lab) [address] [place], [address], 01/22/2023 08:27:59 01/23/20 23 01/22/2023 CBC W/O DIFFE RENTI AL red cell distribution width 13.2 % 11.8-1 5.5 Not Available [facility] (Lab) [address] [place], [address], 01/22/2023 08:27:59 01/23/20 23 01/22/2023 CBC W/O DIFFE RENTI AL platelets 236 x10'3 /uL 150-40 0 Not Available [facility] (Lab) [address] [place], [address], 01/22/2023 08:27:59 01/23/2001/22/2023 CBC W/O DIFFE RENTI AL mean platelet volume 11.7 fL 9.0-12 .4 Not Available [facility] (Lab) [address] [place], [address], 01/22/2023 08:27:59 01/22/2001/21/2023 XR, knee, 1 or 2 view [facility] [address] [place] [address] [phone] Patien t Name: CLUA NÚÑEZ Access ion #: [id number] Sex: F : 1945 6 9 Dictat ed By: Alejo Gutierrez [facility] Physic marika: ERVIN BEY [facility] Physic marika: ERVIN BEY Exam Date: 2022 [...] at 2022 10:50: 02 AM Page [address] ([facility]) [address] [facility], [place], [address], 01/21/2023 12:56:55 02/07/20 23 01/09/2023 elect mag paez am No observ ation record ed. [email or web address] Not Available 2022 09:43:09 02/18/20 23 02/17/2023 US, chaimle x, venou s, lower extre mity No observ ation record ed. [facility] [address], [place], [address], 02/18/2023 10:29:52 03/07/19 24 XR, knee No observ ation record ed. [facility] [place] [address], [place], [address], 03/23/2023 19:58:42 04/18/19 24 XR, lumba r spine No observ ation record ed. [facility] [place] [address], [place], [address], 04/20/2023 14:41:13 04/18/19 24 XR, pelvi s No observ ation record ed. [facility] [place] [address], [place], [address], 04/20/2023 14:40:29 Result Notes None recorded. Problems Name Problem SNOMED Code Status Onset Date Resolution Date Notes Provider Name and Address Organization Details Recorded Time Pain of right shoulder joint 4674148471575 9100 Active 2021 Not Available [facility] 22:45:06 Osteoarthr itis 200793921 Active 2021 Not Available [facility] 3 22:45:06 Bilateral osteoarthr itis of knees 7278263295625 07 Active 2022 MILANA Huntley null, [place] - [facility] 3 09:56:58 Pain of left knee joint 9347318734288 07 Active 2022 MILANA [place] [facility] 3 10:01:05 Osteoarthr itis of left knee joint 1009026228261 09 Active 2022 Dayanna Koch CMA null, [facility] 3 12:14:09 History of left total knee replacemen t 7777226276106 105 Active 2022 Dayanna Koch CMA null, [place] - [facility] 3 15:06:28 Osteoarthr itis of right knee joint 4196403466967 00 Active 2023 MILANA Huntley null, [facility] 4 10:06:35 Low back pain 493606916 Active 2023 MARCY Lawrence, [facility] 4 10:22:49 Problem Notes None recorded. Procedures Surgical History Date Name Laterality Status Provider Name and Address Organization Details Recorded Time Hip surgery completed Not Available [facility] 05/02/19 22:43:54 procedure on ear completed Not Available [facility] 05/01/2022 22:43:54 Tubal Ligation completed Not Available [facility] 05/01/2022 22:43:54 Imaging Results None recorded. Procedure Notes None recorded. Medical Equipment None [...] for injection in office 2023 active [facility]: 0003- 0494- 20 Not Available Not Available [...] injection solution in office 2023 active [facility] [address]- 01 Not Available Not Available Not [...] Details Last Updated DateTime 03/07/2023 152.4 cm Geraldine Green, [facility] 03/07/2023 10:19:29 Date Recorded Body height Provider Name an d Address Organization Details Last Updated DateTime 04/18/2023 152.4 cm Geraldine Gillespie [facility] 04/18/2023 10:06:13 Date Recorded Body height Provider Name an d Address Organization Details Last Updated DateTime 12/06/2022 152.4 cm Geraldine Gillespie [facility] 12/06/2022 09:59:59 Date Recorded Body height Provider Name an d Address Organization Details Last Updated DateTime 02/03/2023 152.4 cm Geraldine Gillespie [facility] 02/03/2023 16:49:19 Date Recorded Body height Provider Name an d Address Organization Details Last Updated DateTime 02/17/2023 152.4 cm Geraldine Gillespie [facility] 02/17/2023 14:42:07 Social History None recorded. Functional Status Question Answer Note LastModified by Organizat ion Details LastModified Time What is your level of alcohol consumption? None [id number] Information not available 05/01/2022 Mental Status None recorded. Family History Relationship Description Onset Age of this Age Resolved Age Notes LastModified by Organization Details LastModified Time Mother Alzheimer's disease [id number] Not available 05/01/2022 22:43:55 Mother Hypertensive disorder [email or web address] Not available 2022 10:04:23 Medical History Condition Response HYPERTENSION Y Gynecological HistoryNo gynecological history recorded. Obstetrics History GPAL:G 0 P 0 0 0 0 Past Encounters Encounter ID Performer Location Encounter Start Date Encounter Closed Date Diagnosis/Indication Diagnosis SNOMED-CT Code Diagnosis ICD10 Code Diagnosis Note [id number] MD TALIA [facility] [place] [address] [place] [address] 07/26/2020 00:00:00 08/04/2020 18:32:33 [id number] Ervin Alaniz MD [facility] [place] [address] [place] [address] 10/13/2020 00:00:00 10/13/2020 11:15:37 [id number] Ervin Alaniz MD [facility] [place] [address] [place] [address] 10/30/2020 00:00:00 10/30/2020 15:29:11 [id number] MD TALIA Jordan[facility] [place] [address] [place] [address] 11/27/2020 00:00:00 11/27/2020 14:35:42 [id number] MD TALIA Jordan[facility] [place] [address] [place] [address] 06/29/2021 00:00:00 06/29/2021 09:53:01 [id number] MD TALIA Jordan[facility] [place] [address] [place] [address] 09/28/2021 00:00:00 09/28/2021 10:51:09 [id number] MD TALIA Jordan[facility] [place] [address] [place] [address] 10/03/2021 00:00:00 10/03/2021 14:41:44 [id number] MD DEEPTHI JordanS[facility] [place] [address] [place] [address] 12/21/2021 00:00:00 12/21/2021 12:20:47 [id number] Ervin Alaniz MD S[facility] [place] [address] [place] [address] 12/28/2021 00:00:00 12/28/2021 10:39:56 [id number] MD TALIA Jordan[facility] [place] [address] [place] [address] 03/29/2022 00:00:00 03/29/2022 11:35:33 [id number] MD TALIA Jordan[facility] [place] [address] [place] [address] 06/28/2022 09:45:44 06/28/2022 10:37:08 Bilateral osteoarthritis of knees 8674300072 10065 M17.0 [id number] Ervin Alaniz MD [facility] [place] [address] [place] [address] 09/27/2022 09:54:26 09/27/2022 10:36:53 Bilateral osteoarthritis of knees 9265749900 29645 M17.0 [id number] Ervin Alaniz MD [facility] [place] [address] [place] [address] 12/06/2022 09:43:04 12/16/2022 11:38:07 Pain of left knee joint 8899826456 07914 M25.304 [id number] Ervin Alaniz MD [facility] [place] [address] [place] [address] 02/03/2023 16:45:31 02/03/2023 17:43:31 History of left total knee replacement 5699808624 356806 Z96.020 [id number] Ervin Alaniz MD [facility] [place] [address] [place] [address] 02/17/2023 14:39:08 02/17/2023 15:13:46 History of left total knee replacement 8786495482 727033 Z96.440 [id number] Ervin Alaniz MD [facility] [place] [address] [place] [address] 03/07/2023 10:15:36 03/24/2023 14:33:21 History of left total knee replacement 5036590538 191280 Z96.652 R60.0 [id number] Ervin Alaniz MD [facility] [place] [address] [place] [address] 04/18/2023 10:02:51 04/21/2023 10:14:44 Osteoarthritis of right knee joint 1979938266 38862 M17.11 Low back pain 786058531 M54.50 Health Concerns Section Related Observation LastModified by Organization Detai ls LastModified Time None Recorded Concern Status LastModified by Organization Details LastModified Time None Recorded Advance Directives Directive None Recorded Payers Insurance Date Sequence Insurance Name Policy Number Policy Bennett Covered Member ID Bennett Member ID Guarantor Name 04/28/2023 1 [employer] (MEDICARE REPLACEMENT/ ADVANTAGE - PPO) [id number] Clau Hollis [id number] Clau Hollis Notes Date Note Type Note Provider Name [...] bad. X-rays from June 28 2022 demonstrate usrp-km-[id number] medial compartment osteoarthritis in both knees which [...] and does not feel that these help. MD Marlin Jordan, [address] [address], [place], [address], [facility] 12/14/2022 16:26:41 03/07/2023 text/html patient returns. She [...] her sleep. Ervin Alaniz MD [address], [place], [address], [facility] 03/23/2023 20:00:48 04/18/2023 text/html Patient returns. She [...] replacement in the past. Ervin Alaniz MD [address] [place] [address], [address] [address], [place], [address], [place] [facility] [employer] [facility] 04/20/2023 14:46:55 OBGyn Episode No OBEpisode recorded.
--- OUTSIDE RECORDS SUMMARY | 2024-08-12 03:32 | XMS_ITS | CONTINUITY OF CARE DOCUMENT ---
Author Name dinorah copeland Address Unknown Organization [facility] Address [address] [place] [address] [address] [place] [address] Phone [phone] Care Team Providers Care Emergency Management Program Specialist Name Role Phone Skip Joseph MD Unavailable Skip Joseph MD Unavailable [phone] INSURANCE PROVIDERS Payer name Policy type / Coverage type [place] [employer] party ID [employer] MEDICARE VALUE ADVANTRA PPO Commercial ins [employer] [id number]
[2024-08-12] MEDS: LACTATED RINGERS 1,000 ML 30 ML IV CONT (06:30)
[2024-08-12] MEDS: ACETAMINOPHEN 500 MG TABLET 1000 MG PO (06:48)
[2024-08-12] MEDS: TRANEXAMIC ACID 1,000MG/ISO100 1,000 MG/100 ML BAG 200 MG IVPB (06:56)
[2024-08-12] MEDS: VANCOMYCIN 1,000 MG/NS 250 ML BAG 250 MG IVPB (06:56)
--- NOTE | 2024-08-12 07:10 | WPDHPUPDATE1 ---
History and Physical Update Update Date/Time: 08/12/24 07:10 History and Physical has been reviewed, including an updated exam of the patient. There are NO changes in the patient's condition. Risks, benefits, and alternatives have been discussed and questions answered. Patient agrees to proceed with procedure.
--- NOTE | 2024-08-12 07:21 | P.PNAN_ITS ---
Anes - Initial Pre Proc Eval Procedure: Operation Date: 08/12/24 07:30 Proposed Procedures p Right Total Knee Arthroplasty - Ervin Alaniz MD Date/Time: 08/12/24 07:21 Surgeon: Ervin Alaniz MD Pre Op Diagnosis: OA right knee Patient Data Age: 79 Gender: F Height: 1.55 m Weight: 69.1 kg Last Vital Signs O2 Del Method Room Air 07/20/24 12:12 Allergies Allergy/AdvReac Type Severity Reaction Status Date / Time celecoxib (From Celebrex) Allergy Severe severe pain Verified 08/12/24 07:09 diphenhydramine (From AdvReac Intermediate Dizziness Verified 08/12/24 07:09 Benadryl) Home Medications ?Medication ?Instructions ?Recorded ?Confirmed ?Type amlodipine 10 mg tablet 10 mg PO DAILY 06/06/23 08/12/24 History lisinopril 20 mg tablet 20 mg PO DAILY 06/06/23 08/12/24 History multivitamin 1 tablet PO DAILY 06/06/23 07/20/24 History Laboratory Tests 08/12/24 06:40 Blood Type Pending Antibody Screen Pending Patient hx anesthesia problems: none Family hx anesthesia problems: none Results Review: All pre-operative results and documents have been reviewed as part of the pre- operative evaluation. [facility] Past Medical History Medical History Hypertension Surgical History Surgical History History of tubal ligation History of ear surgery History of left knee replacement 01/21/23 [place] History of left hip replacement Oct 2020- [place] Family History Family History Father Abdominal aneurysm Mother Alzheimer disease Social History Social History Smoking status: Never smoker Alcohol intake: current Alcohol use details: drank casually many years ago, no longer drinks alcohol Substance use: never Substance use type: does not use Do You Feel Safe in your Home?: Yes Lack of Transportation: No Lack of Food: Never True Current Housing: I Have Housing Concerned About Future Housing: No Difficulty Paying Gas/Electric Bills: No Difficulty Paying for Meds: No Currently Unemployed: No Education: Associate Degree Difficulty w/ Childcare or Family Care: No Living arrangements: with family Occupation/Education: retired Spiritual care concerns: No Anes - Eval Final PreProcedure Day of Procedure 08/12/24 07:21 Patient weight: overweight Heart: regular rate and rhythm Lungs: clear to auscultation Airway: Mallampati scale class III Neurological: alert and oriented Last oral intake: >/= 8 hours ASA classification: III Emergent: no Anesthetic plan: proceed Anesthesia type and monitoring: general ETT and standard monitoring Results Review: All pre-operative results and documents have been reviewed as part of the pre- operative evaluation. Informed Consent: The patient's anesthetic plan and its attendant risks and benefits were discuss ed with the patient/family/POA. Questions were solicited and answers provided to the satisfaction of the patient/family/POA.
[2024-08-12] MEDS: ceFAZolin 2 GM/D5W 50 ML 2 GM/50 ML BAG IVPB ×3 (07:36→22:24)
[2024-08-12] MEDS: ceFAZolin SODIUM 1 GM VIAL 3 GM (07:52)
[2024-08-12] MEDS: SODIUM CHLORIDE 0.9% IV 37.7 ML, MORPHINE SULFATE INJ (*CRX) 2 MG, ROPivacaine HCL 1% 2... INFILTRATE (07:53)
[2024-08-12] MEDS: GENTAMICIN BONE CEMENT REFOBACIN 1 EACH TOPICAL (09:17)
[2024-08-12] MEDS: ceFAZolin SODIUM 1 GM VIAL 2 GM IV PUSH (09:30)
[2024-08-12] MEDS: TRANEXAMIC ACID 1,000 MG/10 ML AMPUL 1000 MG IV PUSH (09:31)
--- NOTE | 2024-08-12 10:21 | P.OP_ITS ---
Procedure Note - Detailed Date of Procedure 08/12/24 Pre-op Diagnosis OA right knee Post-op Diagnosis Same Procedure Performed Right total knee arthroplasty Surgeon Ervin Alaniz MD Process Manufacturing Engineer , Benedicto Escamilla Anesthesia General Description of Procedure Patient was brought to the operating room and general anesthesia was administered. She received 2 g of Ancef weight based vancomycin 1 g of TXA preoperatively. The right knee was prepped draped usual fashion. Limb was exsanguinated and tourniquet elevated to 300 mmHg after briefly elevated at 275. A 7 in longitudinal midline incision was used and the vastus medialis splitting approach utilized splitting the vastus medialis at the superior pole patella. Infrapatellar fat pad was partially excised quadriceps synovectomy performed suprapatellar fat pad excised. The patella had intact articular cartilage throughout minimal spurring that was debrided superiorly. Minimal lateral facetectomy performed. A guide ravi was inserted on femoral canal after aspiration of canal contents using the 5 degree valgus cutting bushing 8 mm of bone were removed from the distal femur which because of the wear medially removed equal amounts medially laterally. Next the tibial plateau was cut perpendicular to the axis of the tibia taking a skim cut off the low portion of the medial tibial plateau. The PCL was recessed in the min meniscal remnants excised. Flexion gap measured 9 mm medial and 13 mm laterally. The femoral sizing guide was applied to the distal femur set at 5? of external rotation which matched [place]ites[place] line. Posterior referencing pinholes were placed. The size 60 vanguard cutting block was applied and cuts completed. A 60 trial sat flush with the anterior cortex proximally and line to line medial to lateral. Tibia was sized to a 63 which fit line to line posterolateral to anteromedial at proper rotation. This was punched. With the 11 insert we had appropriate play at 90?. But a little bit tighter medially. In extension it was tight medially compared to laterally. Medial tibial osteophytes were removed without release of medial and posteromedial capsule and with this the knee had a barely positive bounce in extension with no medial opening and 1-2 lateral opening. At 90? the 11 seemed appropriate. We did trial the 12 and at 90? there was no anterior posterior drawer play as it was too tight. An additional mm bone was removed the distal femur posterior femoral osteophytes removed. We did not perform a posterior capsule release. On retrialing the knee came out to full extension with negative bounce with 1-2 mm of medial opening 2-3 mm of lateral opening and appropriate stability in all positions with the 11AS insert and patellar tracking was central even with the tourniquet up. Lug holes were drilled. Step drill was used to make multiple perforations in the tibial plateau and distal femur and the bony surfaces thoroughly irrigated and dried. Using 2 batches of methylmethacrylate 1 with gentamicin powder. The applied a 63 vanguard tibial tray and the 60 CR right femoral component. Cement applied the tibial plateau pressurized tibial component fully seated. Cement applied the femur the femoral component fully seated the knee brought into extension with a 12 mm 5 and 1 insert for cement pressurization. Tourniquet was released and approximately 85 minutes. After cement hardening excess cement was sought for and removed and hemostasis was achieved. We trialed with the 11 insert and had appropriate stability in all positions range of motion 0-135 degrees passively central patellar tracking throughout range of motion. Local anesthetic cocktail was injected in the periarticular soft tissues in the real 11 insert was placed. Locking clip utilized. Range of motion stability patellar tracking reconfirmed. Arthrotomy was closed with 2. Vicryl and 1. Unidirectional barbed Stratafix suture the split closed with running 1. Vicryl. [place] flexion was to 130 and full extension with negative bounce with arthrotomy closed. Skin closed with 2 subcutaneous Vicryl 3-0 subcuticular Monocryl and glue. EBL 200cc. Two additional g of Ancef 1 g of TXA given time wound closure. No known complications. Patient transferred to postop recovery room in stable condition. [facility] Billing Surgery - Charge Forward: Surgery Billing (Right total knee replacement)
--- NOTE | 2024-08-12 10:29 | PM.OP ---
Procedure Note - Brief Procedure Note - Brief Date of procedure: 08/12/24 OA right knee Procedure performed: Right total knee arthroplasty Surgeon: NAA Collado Findings: 79-year-old female underwent right total knee arthroplasty on 08/12. I was involved in the procedure including positioning the patient on the OR table in 1st assisting through the time surgery. Total time spent was 2-1/2 hours
--- NOTE | 2024-08-12 11:08 | SUR.PHASEI ---
SATS DROP TO 88% WHEN SHE FALLS ASLEEP; 1 LITER OXYGEN PER NC PLACED; SATS NOW >95%.
--- NOTE | 2024-08-12 11:25 | ADMGEN ---
This patient, Clua Hollis, was admitted to [facility] Surg Room 319-01. Patient/family oriented to hospital policies and general routines including ID bracelet, bed and alarms, visiting hours, pain management, procedures, bathroom and other care routines, personal items, smoking policy, room service/diet, and visiting hours. Information on how to activate the Rapid Response Team has been discussed. Patient/Family are encouraged to report perceived risks to care and to ask questions if they do not understand what they are told or what they should do.
--- NOTE | 2024-08-12 13:08 | P.CONIM_ITS ---
Assessment and Plan Assessment and plan (1) Primary osteoarthritis of right knee: Code(s): M17.11 - Unilateral primary osteoarthritis, right knee Status: Acute Assessment and Plan: Status post right knee arthroplasty by Orthopedics on 08/12/2024 Pain management by Ortho Eliquis postop antibiotics Regular diet Labs in the a.m. (2) Hypertension: Code(s): I10 - Essential (primary) hypertension Status: Acute Assessment and Plan: Continue amlodipine Lisinopril held by Orthopedics HPI Date of Consult Consult date: 08/12/24 Requesting Physician: Ervin Alaniz MD Primary Care Provider: Kinjal BlackwoodMD Consult Narrative Reason for consult: Medical management Narrative: Clau Hollis is a 79 year old female past medical history of hypertension and chronic right knee pain presents the hospital for a planned right total knee arthroplasty. Patient seen after surgery. She states that her pain is controlled. She has been up to the bathroom. She has no complaints at this current time. Hospitalist team has been consulted for medical management. Review of Systems Review of Systems: 12 systems were reviewed and are negativ e except for as per HPI. PMF Past Medical History Medical History (Updated 08/12/24 @ 13:12 by Jillian Ojeda APRN) Hypertension Surgical History Surgical History History of tubal ligation History of ear surgery History of left knee replacement 01/21/23 [place] History of left hip replacement Oct 2020- [place] Family History Family History Father Abdominal aneurysm Mother Alzheimer disease Social History Social History Smoking status: Never smoker Alcohol intake: never Alcohol use details: drank casually many years ago, no longer drinks alcohol Substance use: never Substance use type: does not use Do You Feel Safe in your Home?: Yes Lack of Transportation: No Lack of Food: Never True Current Housing: I Have Housing Concerned About Future Housing: No Difficulty Paying Gas/Electric Bills: No Difficulty Paying for Meds: No Currently Unemployed: No Education: Bachelor's Degree Difficulty w/ Childcare or Family Care: No Living arrangements: with family Occupation/Education: retired Spiritual care concerns: No Meds Home Medications and Allergies Home Medications ?Medication ?Instructions ?Recorded ?Confirmed ?Type amlodipine 10 mg tablet 10 mg PO DAILY 06/06/23 08/12/24 History lisinopril 20 mg tablet 20 mg PO DAILY 06/06/23 08/12/24 History multivitamin 1 tablet PO DAILY 06/06/23 07/20/24 History Allergies Allergy/AdvReac Type Severity Reaction Status Date / Time celecoxib (From Celebrex) Allergy Severe severe pain Verified 08/12/24 11:53 bacitracin (From Neosporin Allergy Swelling Verified 08/12/24 11:53 ([id number])) neomycin (From Neosporin Allergy Swelling Verified 08/12/24 11:53 ([id number])) polymyxin B (From Neosporin Allergy Swelling Verified 08/12/24 11:53 ([id number])) diphenhydramine (From AdvReac Intermediate Dizziness Verified 08/12/24 11:53 Benadryl) Vital Signs Vital Signs - 24 hr 08/12/24 10:23 08/12/24 10:35 08/12/24 10:50 Temperature 97 F L Pulse Rate 97 94 91 Respiratory Rate 15 14 14 Blood Pressure 123/65 128/64 125/66 Pulse Oximetry 94 97 96 Oxygen Delivery Simple Face Mask Simple Face Mask Room Air Oxygen Flow Rate 8 8 08/12/24 11:05 08/12/24 11:27 Temperature Pulse Rate 92 Respiratory Rate 15 Blood Pressure 121/69 Pulse Oximetry 99 93 Oxygen Delivery Nasal Cannula Room Air Oxygen Flow Rate 1 Exam Narrative: General: well appearing, appears stated age. HEENT: normocephalic, atraumatic. Mucous membranes moist. EOMI, PERRLA, bilateral sclera anicteric, no conjunctival injection. Neck supple without JVD, lymphadenopathy, or bruit. Respiratory: clear to ascultation bilaterally. No rales/rhonic/wheezes. Cardiovascular: Regular rate and rhythm, normal S1-S2 upon ascultation. No murmurs, rubs, or clicks. PMI is nondisplaced, capillary refill less than 3 second. Abdomen: Soft, round, no pulsatile masses, nondistended and nontender. No reboun d, no guarding. No CVA tenderness, no hepatosplenomegaly. Bowel sounds present to all four quadrants. No high pitch or tinkling sounds, resonant to percussion. Extremities: No cyanosis, clubbing, or edema present. Pulses are palpable 2/2. Right lower extremity with surgical dressing clean dry intact Neuro: Alert and orientated x 4. PERRLA. Cranial nerves 2-12 intact without focal deficit. Skin: Warm, dry, and intact, without rash, erythema, or lesion. Psych: pleasant, cooperative, normal speech, normal affect, no hallucinations, no dysarthia Quality VTE Prophylaxis VTE prophylaxis: mechanical ordered and pharmacologic ordered Hospitalist MIPS Advance Care Plan I have confirmed that the patient's Advanced Care Plan is present, code status is documented, or surrogate decision maker is listed in patient medical record.: Yes Medication Reconciliation I have utilized all available resources to obtain, update and review the patients current medications (includes all prescriptions, OTC, herbals, cannabis, and nutritional supplements).: Yes
[2024-08-12] MEDS: ACETAMINOPHEN 325 MG TABLET 650 MG PO ×3 (14:32→21:01)
[2024-08-12] MEDS: oxyCODONE HCL (*CRX) 2.5 MG TAB IR PO ×3 (14:32→21:01)
[2024-08-12] MEDS: SENNA/DOCUSATE SODIUM TABLET 2 TAB PO (16:57)
[2024-08-12] MEDS: VANCOMYCIN 1,000 MG/NS 250 ML 1,000 MG/250 ML BAG 250 MG IVPB (18:51)
[2024-08-12] MEDS: FAMOTIDINE 20 MG TABLET PO (21:01)
[2024-08-13 00:44] VITALS: BP 120/76; PULSE 97; RESP 20; TEMP 36.4; O2SAT 99
[2024-08-13] MEDS: oxyCODONE HCL (*CRX) 2.5 MG TAB IR PO ×4 (01:48→13:05)
[2024-08-13] MEDS: ACETAMINOPHEN 325 MG TABLET 650 MG PO ×3 (01:48→13:05)
[2024-08-13 05:00] VITALS: BP 128/62; PULSE 91; RESP 18; TEMP 36.2; O2SAT 97
[2024-08-13] MEDS: ceFAZolin 2 GM/D5W 50 ML 2 GM/50 ML BAG IVPB (06:23)
[2024-08-13 06:28] LABS: Basophils Percent Auto 0.2 % (0.2-1.2); Hematocrit 33.7 % (37.0-47.0); Hemoglobin 11.1 g/dL (12.0-15.0); Immature Granulocyte Absolute 0.08 K/mm3 (0.00-0.031); Immature Granulocyte Percent A 0.5 % (0-0.5); Lymphocytes Absolute Auto 1.14 K/mm3 (0.9-3.2); Lymphocytes Percent Auto 7.3 % (18.3-44.2); Mean Corpuscular HGB Conc 32.9 g/dl (32-36); Mean Corpuscular Hemoglobin 31.3 pg (26-34); Mean Corpuscular Volume 94.9 fl (80-100); Mean Platelet Volume 11.4 fl (7.4-10.4); Monocytes Absolute Auto 1.3 K/mm3 (0.1-0.6); Monocytes Percent Auto 8.3 % (2.6-8.5); Neutrophils Absolute Auto 13.1 K/mm3 (1.3-6.7); Neutrophils Percent Auto 83.7 % (45.5-73.1); Platelet Count Result 207 k/mm3 (150-375); Red Blood Count 3.55 M/mm3 (4.2-5.4); Red Cell Distribution Width 13.8 % (11.5-14.5); White Blood Count 15.6 K/mm3 (4.5-10.0)
[2024-08-13 06:39] LABS: Anion Gap 6 mmol/L (4-12); Blood Urea Nitrogen 15 mg/dL (7-17); Calcium 9.3 mg/dL (8.4-10.2); Carbon Dioxide 24 mmol/L (22-30); Chloride 108 mmol/L (98-107); Estimated CRCL calculation 52 ml/min; Estimated Glomerular Filt Rate > 60; Glucose 115 mg/dL (65-110); Sodium 138 mmol/L (137-145)
[2024-08-13] MEDS: VANCOMYCIN 1,000 MG/NS 250 ML 1,000 MG/250 ML BAG 250 MG IVPB (07:17)
--- NOTE | 2024-08-13 08:00 | P.PNOP_ITS ---
Subjective Subjective Date/Time Seen: 08/13/24 08:00 Interval history: Postop day 1 patient is alert. She is afebrile vital signs are stable. Morning labs are noted. She does have a small area of drainage her bandage. We will change this this morning. Patient was up yesterday walking with therapy. Pain is very well controlled. Overall patient is very happy and doing very well. She is anxious to go home. Neurovascularly she is intact. She is able do a straight leg raise in the bed this morning. Will plan have the patient work with therapy this morning and if she continues to do well she will be discharged home late this morning. Objective Data Vital Signs Vital Signs: Vital Signs - 24 hr 08/12/24 10:23 08/12/24 10:35 08/12/24 10:50 Temperature 97 F L Pulse Rate 97 94 91 Respiratory Rate 15 14 14 Blood Pressure 123/65 128/64 125/66 Pulse Oximetry 94 97 96 Oxygen Delivery Simple Face Mask Simple Face Mask Room Air Oxygen Flow Rate 8 8 08/12/24 11:05 08/12/24 11:27 08/12/24 11:45 Temperature 98.3 F Pulse Rate 92 91 Respiratory Rate 15 16 Blood Pressure 121/69 129/64 Pulse Oximetry 99 93 93 Oxygen Delivery Nasal Cannula Room Air Oxygen Flow Rate 1 08/12/24 12:00 08/12/24 12:12 08/12/24 14:20 Temperature 97.9 F 98.8 F Pulse Rate 91 101 H Respiratory Rate 18 20 Blood Pressure 129/64 131/68 Pulse Oximetry 92 95 Oxygen Delivery Room Air Oxygen Flow Rate 08/12/24 14:57 08/12/24 17:12 08/12/24 20:00 Temperature 98.3 F Pulse Rate 102 H Respiratory Rate 18 Blood Pressure 132/70 Pulse Oximetry 93 Oxygen Delivery Room Air Room Air Oxygen Flow Rate 08/12/24 21:12 08/13/24 00:44 08/13/24 05:00 Temperature 97.4 F L 97.6 F 97.2 F L Pulse Rate 105 H 97 91 Respiratory Rate 16 20 18 Blood Pressure 140/74 120/76 128/62 Pulse Oximetry 94 99 97 Oxygen Delivery Oxygen Flow Rate Intake/Output Intake/Output: Intake & Output 06/10/25 06/11/25 06/12/25 06/13/25 23:59 23:59 23:59 23:59 Intake Total 1780 50 Balance 1780 50 Meds/Results Medications: Active Medications Generic Name Dose Route Start Last Admin Trade Name Freq PRN Reason Stop Dose Admin Acetaminophen 650 mg 08/12/24 13:30 08/13/24 06:23 Acetaminophen 325 Mg Tablet PO 650 mg Q4H SAJAN Administration Amlodipine Besylate 10 mg 08/13/24 09:00 Amlodipine Besylate 10 Mg Tablet PO DAILY [facility] Apixaban 2.5 mg 08/13/24 09:00 Apixaban 2.5 Mg Tablet PO 08/24/24 21:01 Q12HR [facility] Cefdinir 300 mg 08/13/24 09:00 Cefdinir 300 Mg Capsule PO Q12HR [facility] Diphenhydramine HCl 25 mg 08/12/24 11:27 Diphenhydramine Hcl Inj 50 Mg/Ml Vial IV PUSH Q6H PRN Itching Famotidine 20 mg 08/12/24 21:00 08/12/24 21:01 Famotidine 20 Mg Tablet PO 20 mg Q12HR [facility] Administration Meloxicam 7.5 mg 08/13/24 08:00 Meloxicam 7.5 Mg Tablet PO DAILY@0800 [facility] Morphine Sulfate 2 mg 08/12/24 11:27 Morphine Sulfate (*Crx) 2 Mg/Ml Inj IV PUSH Q2H PRN Breakthrough Pain Rated 4-6 or NPO Naloxone HCl 0.1 mg 08/12/24 11:27 Naloxone Hcl 0.4 Mg/Ml Vial IV PUSH Q2M PRN Opiate Reversal Ondansetron HCl 4 mg 08/12/24 11:27 Ondansetron Inj 4 Mg/2 Ml Vial IV PUSH Q4H PRN Nausea And Vomiting Oxycodone HCl 2.5 mg 08/12/24 13:00 08/13/24 06:55 Oxycodone Hcl (*Crx) 2.5 Mg Tab Ir PO Not Given Q4HR [facility] Oxycodone HCl 2.5 mg 08/12/24 11:27 08/13/24 07:17 Oxycodone Hcl (*Crx) 2.5 Mg Tab Ir PO 2.5 mg Q4H PRN Administration Pain Rated 4-6 Polyethylene Glycol 17 gm 08/13/24 09:00 Polyethylene Glycol 3350 17 Gm Powd.Pack PO QAM [facility] Senna/Docusate Sodium 2 tab 08/12/24 17:00 08/12/24 16:57 Senna/Docusate Sodium Tablet PO 2 tab BID SAJAN Administration Radiology Results: ITS Impressions Knee X-Ray 08/12/24 10:37 IMPRESSION: 1. Recent right total knee arthroplasty. Labs Labs: Laboratory Results - last 24 hr 08/13/24 06:15 WBC 15.6 H RBC 3.55 L Hgb 11.1 L Hct 33.7 L MCV 94.9 MCH 31.3 MCHC 32.9 RDW 13.8 Plt Count 207 MPV 11.4 H Immature Gran % (Auto) 0.5 Neut % (Auto) 83.7 H Lymph % (Auto) 7.3 L [place] % (Auto) 8.3 Eos % (Auto) 0.0 Baso % (Auto) 0.2 Lymph # (Auto) 1.14 [place] # (Auto) 1.3 H Eos # (Auto) 0.0 Baso # (Auto) 0.0 Abs Immat Gran (auto) 0.08 H Absolute Neuts (auto) 13.1 H Absolute Nucleated RBC 0.000 Nucleated RBC % 0.0 Sodium 138 Potassium 4.0 Chloride 108 H Carbon Dioxide 24 Anion Gap 6 BUN 15 D Creatinine 0.67 L Estim Creat Clear Calc 52 Estimated GFR > 60 Glucose 115 H Calcium 9.3
[2024-08-13] MEDS: polyethylene glycoL 3350 17 GM POWD.PACK PO (09:05)
[2024-08-13] MEDS: SENNA/DOCUSATE SODIUM TABLET 2 TAB PO (09:05)
[2024-08-13] MEDS: CEFDINIR 300 MG CAPSULE PO (09:05)
[2024-08-13] MEDS: FAMOTIDINE 20 MG TABLET PO (09:05)
[2024-08-13] MEDS: MELOXICAM 7.5 MG TABLET PO (09:05)
[2024-08-13] MEDS: APIXABAN 2.5 MG TABLET PO (09:05)
[2024-08-13] MEDS: amLODIPine BESYLATE 10 MG TABLET PO (09:05)
[2024-08-13 09:12] VITALS: BP 143/80; PULSE 88; RESP 18; TEMP 36.5; O2SAT 98
--- NOTE | 2024-08-13 11:57 | P.PNIM_ITS ---
Progress Note: A&P Assessment and Plan (1) Primary osteoarthritis of right knee: Code(s): M17.11 - Unilateral primary osteoarthritis, right knee Status: Acute Assessment and Plan: Status post right knee arthroplasty by Orthopedics on 08/12/2024 Pain management by Liliane Barnes postop antibiotics Regular diet (2) Hypertension: Code(s): I10 - Essential (primary) hypertension Status: Acute Assessment and Plan: Continue amlodipine Lisinopril held by Orthopedics, can resume (3) Leukocytosis: Code(s): D72.829 - Elevated white blood cell count, unspecified Status: Acute Assessment and Plan: WBC elevated to 15.6 Likely reactive post procedure Repeat CBC outpatient 1-2 weeks No report of dysuria and lungs clear Time Spent With Patient Time: 54 minutes Subjective Date/time seen: 08/13/24 11:57 Interval history: Pain controlled. Walking to the bathroom with a walker without assistance. Has help at home from daughter. Review of Systems Review of Systems: 12 systems were reviewed and are negativ e except for as per HPI. Exam Narrative: General: well appearing, appears stated age. HEENT: normocephalic, atraumatic. Mucous membranes moist. EOMI, PERRLA, bilateral sclera anicteric, no conjunctival injection. Neck supple without JVD, lymphadenopathy, or bruit. Respiratory: clear to auscultation bilaterally. No rales/rhonic/wheezes. Cardiovascular: Regular rate and rhythm, normal S1-S2 upon auscultation. No murmurs, rubs, or clicks. PMI is nondisplaced, capillary refill less than 3 second. Abdomen: Soft, round, no pulsatile masses, nondistended and nontender. No rebound, no guarding. No CVA tenderness, no hepatosplenomegaly. Bowel sounds present to all four quadrants. No high pitch or tinkling sounds, resonant to percussion. Extremities: No cyanosis, clubbing, or edema present. Pulses are palpable 2/2. Right lower extremity with surgical dressing clean dry intact Neuro: Alert and orientated x 4. PERRLA. Cranial nerves 2-12 intact without focal deficit. Skin: Warm, dry, and intact, without rash, erythema, or lesion. Psych: pleasant, cooperative, normal speech, normal affect, no hallucinations, no dysarthria Objective Data Vital Signs Vital Signs: Vital Signs - 24 hr 08/12/24 12:00 08/12/24 12:12 08/12/24 14:20 Temperature 97.9 F 98.8 F Pulse Rate 91 101 H Respiratory Rate 18 20 Blood Pressure 129/64 131/68 Pulse Oximetry 92 95 Oxygen Delivery Room Air 08/12/24 14:57 08/12/24 17:12 08/12/24 20:00 Temperature 98.3 F Pulse Rate 102 H Respiratory Rate 18 Blood Pressure 132/70 Pulse Oximetry 93 Oxygen Delivery Room Air Room Air 08/12/24 21:12 08/13/24 00:44 08/13/24 05:00 Temperature 97.4 F L 97.6 F 97.2 F L Pulse Rate 105 H 97 91 Respiratory Rate 16 20 18 Blood Pressure 140/74 120/76 128/62 Pulse Oximetry 94 99 97 Oxygen Delivery 08/13/24 09:00 08/13/24 09:12 Temperature 97.7 F Pulse Rate 88 Respiratory Rate 18 Blood Pressure 143/80 H Pulse Oximetry 98 Oxygen Delivery Room Air Intake/Output Intake/Output: Intake & Output 08/10/24 08/11/24 08/12/24 08/13/24 23:59 23:59 23:59 23:59 Intake Total 1780 290 Balance 1780 290 Meds/Results Medications: Active Medications Generic Name Dose Route Start Last Admin Trade Name Freq PRN Reason Stop Dose Admin Acetaminophen 650 mg 08/12/24 13:30 08/13/24 09:05 Acetaminophen 325 Mg Tablet PO Not Given Q4H [facility] Amlodipine Besylate 10 mg 08/13/24 09:00 08/13/24 09:05 Amlodipine Besylate 10 Mg Tablet PO 10 mg DAILY SAJAN Administration Apixaban 2.5 mg 08/13/24 09:00 08/13/24 09:05 Apixaban 2.5 Mg Tablet PO 08/24/24 21:01 2.5 mg Q12HR SAJAN Administration Cefdinir 300 mg 08/13/24 09:00 08/13/24 09:05 Cefdinir 300 Mg Capsule PO 300 mg Q12HR SAJAN Administration Diphenhydramine HCl 25 mg 08/12/24 11:27 Diphenhydramine Hcl Inj 50 Mg/Ml Vial IV PUSH Q6H PRN Itching Famotidine 20 mg 08/12/24 21:00 08/13/24 09:05 Famotidine 20 Mg Tablet PO 20 mg Q12HR SAJAN Administration Meloxicam 7.5 mg 08/13/24 08:00 08/13/24 09:05 Meloxicam 7.5 Mg Tablet PO 7.5 mg DAILY@0800 [facility] Administration Morphine Sulfate 2 mg 08/12/24 11:27 Morphine Sulfate (*Crx) 2 Mg/Ml Inj IV PUSH Q2H PRN Breakthrough Pain Rated 4-6 or NPO Naloxone HCl 0.1 mg 08/12/24 11:27 Naloxone Hcl 0.4 Mg/Ml Vial IV PUSH Q2M PRN Opiate Reversal Ondansetron HCl 4 mg 08/12/24 11:27 Ondansetron Inj 4 Mg/2 Ml Vial IV PUSH Q4H PRN Nausea And Vomiting Oxycodone HCl 2.5 mg 08/12/24 13:00 08/13/24 09:05 Oxycodone Hcl (*Crx) 2.5 Mg Tab Ir PO 2.5 mg Q4HR SAJAN Administration Oxycodone HCl 2.5 mg 08/12/24 11:27 08/13/24 07:17 Oxycodone Hcl (*Crx) 2.5 Mg Tab Ir PO 2.5 mg Q4H PRN Administration Pain Rated 4-6 Polyethylene Glycol 17 gm 08/13/24 09:00 08/13/24 09:05 Polyethylene Glycol 3350 17 Gm Powd.Pack PO 17 gm QAM [facility] Administration Senna/Docusate Sodium 2 tab 08/12/24 17:00 08/13/24 09:05 Senna/Docusate Sodium Tablet PO 2 tab BID SAJAN Administration Radiology Results: ITS Impressions Knee X-Ray 08/12/24 10:37 IMPRESSION: 1. Recent right total knee arthroplasty. Labs Labs: Laboratory Results - last 24 hr 08/13/24 06:15 WBC 15.6 H RBC 3.55 L Hgb 11.1 L Hct 33.7 L MCV 94.9 MCH 31.3 MCHC 32.9 RDW 13.8 Plt Count 207 MPV 11.4 H Immature Gran % (Auto) 0.5 Neut % (Auto) 83.7 H Lymph % (Auto) 7.3 L Claiborne % (Auto) 8.3 Eos % (Auto) 0.0 Baso % (Auto) 0.2 Lymph # (Auto) 1.14 Claiborne # (Auto) 1.3 H Eos # (Auto) 0.0 Baso # (Auto) 0.0 Abs Immat Gran (auto) 0.08 H Absolute Neuts (auto) 13.1 H Absolute Nucleated RBC 0.000 Nucleated RBC % 0.0 Sodium 138 Potassium 4.0 Chloride 108 H Carbon Dioxide 24 Anion Gap 6 BUN 15 D Creatinine 0.67 L Estim Creat Clear Calc 52 Estimated GFR > 60 Glucose 115 H Calcium 9.3 Quality VTE Prophylaxis VTE prophylaxis: mechanical ordered and pharmacologic ordered Hospitalist MIPS Advance Care Plan I have confirmed that the patient's Advanced Care Plan is present, code status is documented, or surrogate decision maker is listed in patient medical record.: Yes Medication Reconciliation I have utilized all available resources to obtain, update and review the patients current medications (includes all prescriptions, OTC, herbals, cannabis, and nutritional supplements).: Yes
== END 2024-08-13 13:30 | disposition home or self-care (01) ==
LOC: ANHSURGERY 06:05 → ANH3MEDSUR 11:34
PROVIDERS: Physician Assistant Surgical; PCP Family Medicine; Visit Provider Orthopaedic Surgery
PROC: (CPT 27447; principal; 2024-08-12 07:30)
DX: M17.11 Unilateral primary osteoarthritis, right knee (principal); M25.761 Osteophyte, right knee; I10 Essential (primary) hypertension; Z98.890 Other specified postprocedural states; Z98.51 Tubal ligation status; Z96.652 Presence of left artificial knee joint
CPT/HCPCS: 27447; 36415; 73560; 80048; 85025; 86850; 86900; 86901; 97110; 97116; 97161; 97165; 97530; 97535; A9270; C1713; C1776; J0171; J0690; J1100; J1171; J1885; J2250; J2270; J2405; J2704; J2795; J3370; J7120